=== PATIENT | female | born 1990 | race Caucasian/White ===

== ENCOUNTER → 2019-12-10 14:43 | Outpatient (BNVA) | payer MEDICAID, SELFPAY | PROVIDERS: Family Provider Nurse Practitioner Family; Visit Provider Obstetrics & Gynecology | DX: O26.893 Other specified pregnancy related conditions, third trimester; Z67.91 Unspecified blood type, Rh negative | CPT/HCPCS: 81003; 82950; 85027; 86850 ==

== ENCOUNTER 2019-12-15 17:58 | Observation (INO) | payer MEDICAID, SELFPAY ==
[2019-12-15] VITALS (7 sets, daily range): BP systolic 0–142; BP diastolic 0–79; PULSE 97–100; RESP 16–20; TEMP 36.6–36.8; BMI 33.6
[2019-12-15] MEDS: acetaminophen 325 mg Tablet 650 MG PO (15:12)
[2019-12-15 15:24] LABS: Bilirubin Urine Neg (NEGATIVE); Blood Urine 3+ (Negative); Glucose Urine UA Norm (Normal); Ketones Urine Negative (Negative); Leukocyte Esterase Urine Negative (Negative); Nitrate Urine Negative (Negative); Protein Urine Trace (Negative); Specific Gravity, Urine 1.025 (1.005-1.030); Urine Appearance Cloudy (CLEAR); Urine Color Yellow (Yellow); Urobilinogen Urine Norm (Negative); pH Urine 6 (5-7)
[2019-12-15 15:26] LABS: Bacteria Urine 2+; Mucus Urine 1+; RBC Urine TOO NUMEROUS TO CNT /hpf (0-2); Squamous Epithelial Cell Urine 0-4 (0-5); WBC Urine 0-4 /hpf (0-5)
[2019-12-15 15:27] LABS: Add Urine Culture? Yes
[2019-12-15 15:32] LABS: Alanine Aminotransferase 9 U/L (0-33); Albumin Level 3.6 g/dL (3.5-5.2); Alkaline Phosphatase 98 IU/L (35-105); Anion Gap 16.8 (5-19); Aspartate Amino Transferase 15 U/L (0-32); Blood Urea Nitrogen 5 mg/dL (6-20); Calcium 9.5 mg/Dl (8.6-10.0); Carbon Dioxide 22 mmol/L (22-29); Chloride 99 mmol/L (98-107); Globulin 3.6 g/dL (1.3-4.6); Glomerular Filtration Rate 143.9 mL/min (90-130); Glucose 97 mg/dL (74-109); Potassium 3.8 mmol/L (3.5-5.1); Sodium 134 mmol/L (136-145); Total Bilirubin 0.4 mg/dL (0.15-1.2); Total Protein 7.2 g/dL (6.6-8.7)
[2019-12-15] MEDS: sodium chloride 0.9% 1,000 ML 999 ML IV (15:43)
[2019-12-15] MEDS: metoclopramide 5 mg/mL SDV 2 mL 10 MG IVP (15:43)
--- NOTE | 2019-12-15 15:52 | PC.NURSE ---
pt writhing in bed, unable to position to comfort or to keep EFM tracing. pt crying and asking for pain medication. call to dr marcano for further orders. message left with ANABEL Harrell RN at bedside adjusting monitors, but pt unable to sit still and still sitting up to vomit intermittently
[2019-12-15] MEDS: ampicillin 2,000 MG in sodium chloride 0.9% (plus) 50 ML 100 MG IV (16:38)
[2019-12-15] MEDS: sodium chloride 0.9% 1,000 ML 125 ML IV (16:46)
--- NOTE | 2019-12-15 17:03 | PC.NURSE ---
pt refusing monitors at this time, refusing to wear belly band. states after pain is decreased she will agree to monitors
[2019-12-15] MEDS: lactated ringers 1,000 ML 250 ML IV (22:00)
--- NOTE | 2019-12-15 22:08 | PC.NURSE ---
initiation of LR due to verbal direction from Dr. Gold to start LR after infusion of current fluid.
[2019-12-15] MEDS: HYDROcodone-acetaminophen 5-325 mg Tablet PO (23:43)
[2019-12-16] MEDS: lactated ringers 1,000 ML 250 ML IV ×2 (02:07→06:13)
[2019-12-16 04:53] VITALS: BP 123/72; PULSE 86
[2019-12-16] MEDS: HYDROcodone-acetaminophen 5-325 mg Tablet PO (06:16)
[2019-12-16] MEDS: ondansetron 2 mg/ML SDV 2 mL 4 MG IVP (08:51)
--- NOTE | 2019-12-16 09:04 | US_ITS ---
WS: [id number] RENAL ULTRASOUND HISTORY: KIDNEY STONES COMPARISON: None available. TECHNIQUE: 2-D and color Doppler imaging of the kidney submitted. Right kidney: 11.9 cm x 5.6 cm x 4.5 cm. Normal size kidney normal echogenicity. Very mild dilatation of the RIGHT renal pelvis. No calyceal d ilatation. Left kidney: 11.9 cm x 4.9 cm x 5.3 cm. Normal size kidney and normal echogenicity. There is mild dilatation of the LEFT renal pelvis. Aorta: Normal. Urinary Bladder: Minimally distended. US/US renal BI* [id number] IMPRESSION: Very mild dilatation of the renal pelves, LEFT greater than RIGHT.
--- NOTE | 2019-12-16 09:12 | P.HP_ITS ---
Providers/Chief Complaint Admitting Physician: Shayne Pineda MD Primary Care Provider: DOCTOR NOT ON FILE Chief Complaint: OPOB History of Present Illness Patient is a 29-year-old white female 1, para 0 with an LMP of 05/2019 and an EDC of 03/02/2020 based on a 10-week ultrasound, which placed her at 29-0/7 weeks gestation today. She presented to labor and delivery yesterday afternoon with in her back and side. She reported having had a prior history of kidney stones and the pain reminded her of that. She stated that she had had nausea associated with it. She stated she had been unable to keep pain medications down due to the nausea. She stated that heat helped with the pain, but did not completely relieve it. She denied seeing any blood in the urine. She denied vaginal bleeding, leaking of fluid, or contractions. She reported the baby was moving well. This morning, she states that her pain has improved. She states that it will almost go away but then comes back in waves periodically with nausea associated with it. She reports that she did pass a stone this morning. She denies vaginal bleeding or leaking of fluid. She denies contractions. She reports the baby has been moving well. CARE care has been mainly provided by Dr. Cornelius Gold at [facility]. Her care had been uncomplicated. labs 08/18/2019 Blood type: A NEGATIVE Antibody screen : Negative Intake CBC: 8.6<13.2/37.5> 284 Cystic fibrosis: Declined Rubella : Immune Hepatitis B surface antigen: Nonreactive Hepatitis C antibody: Nonreactive RPR: Nonreactive HIV: Nonreactive Drug screen: Negative Urine culture: < 5000 contaminants, no GBS Early GCT: 114-normal TSH: 1.92-normal NIPT: declined Gonorrhea: Negative Chlamydia: Negative Pap smear: Negative for intraepithelial lesion or malignancy, high-risk HPV negative 09/18/2019 Quad screen: Declined. 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 Visualized anatomy appears normal and complete except for nonvisualization of the profile secondary to position. Recommend repeat evaluation at 27 weeks to reassess profile and growth. Review of Systems Const: Denies: fever or chills Eyes: Denies: change in vision ENMT: Denies: throat pain or nasal congestion Card: Denies: chest pain, palpitations or lightheadedness Resp: Denies: shortness of breath, productive cough, non-productive cough or wheezing GI: Reports: abdominal pain, nausea and vomiting : Denies: difficulty urinating, painful urination, urinary frequency, urinary urgency, blood in urine, genital itching, vaginal bleeding or vaginal discharge Musc: Reports: back pain Neuro: Denies: headache Psych: Denies: anxiety or depression Temo/Lymph: Denies: easy bruising or easy bleeding Medications/Allergies Home Medications Medication Instructions Recorded Confirmed Last Taken Type PNV cmb#95-ferrous fumarate-FA 1 tab PO DAILY 12/15/19 12/15/19 12/15/19 08:00 History [] Allergies Allergy/AdvReac Type Severity Reaction Status Date / Time codeine Allergy Mild vomiting Verified 12/15/19 14:47 [From [employer] with Codeine] PFSH Acute PFSH: Statuses (acute, chronic, etc) shown below reflect problem list status as previously entered and may not be historically accurate Medical History Rh negative status during (Acute) Blood type: A Negative Surgical History S/P cholecystectomy (Acute ~05/2013) Laparoscopic. S/P tonsillectomy (Acute ~1998) Family History Family/Other Diabetes Paternal uncle, Father's brothers and sisters (multiple ones have it) Grandmother Hyperlipidemia Maternal Grandfather Prostate cancer Paternal Social History (Updated 12/16/19 @ 09:35 by Cornelius Gold MD) Smoking and tobacco status: never smoked Alcohol intake: never Substance/Drug Use: never Female Reporductive History: : 1 Para: 0 Vitals/I&O/Wt Last Vital Signs Temp 97.9 F 12/15/19 22:05 Pulse 86 12/16/19 04:53 Resp 16 12/15/19 22:05 BP 123/72 12/16/19 04:53 12/15/19 12/16/19 12/16/19 22:59 06:59 14:59 Intake Total 2150.000 / 2150.000 2000 / 4150.000 Output Total 600 / 600 1450 / 2050 Balance 1550.000 / 1550.000 550 / 2100.000 Weight last 48 hrs Weight 184 lb Physical Exam Const: COMMON NORMALS: no apparent distress, average body habitus, alert and well nourished GENERAL APPEARANCE: well developed ORIENTATION/CONSCIOUSNESS: Yes oriented to person, Yes oriented to place and Yes oriented to time Neck/C-Spine: COMMON NORMALS: thyroid normal GENERAL: Yes trachea midline THYROID: thyroid normal Resp: COMMON NORMALS: normal respiratory effort and clear to auscultation bilaterally AUSCULTATION: clear to auscultation bilaterally Cardio: COMMON NORMALS: regular rate, regular rhythm, no gallops and no rub RATE: regular rate RHYTHM: regular rhythm PERIPHERAL PULSES: posterior tibial pulses present GI: COMMON NORMALS: soft to palpation, non-tender, no hepatosplenomegaly and no masses (Except for nontender gravid uterus) AUSCULTATION: Yes normoactive bowel sounds PALPATION: Yes soft, Yes no hepatosplenomegaly and No hernia Back/Pelvis: COMMON NORMALS: no CVA tenderness (Bilaterally) Neuro: SENSORIUM/ORIENTATION: Yes alert, Yes oriented to person, Yes oriented to place and Yes oriented to time Psych: COMMON NORMALS: affect normal MOOD & AFFECT: Yes euthymic mood Skin: COMMON NORMALS: no rashes or lesions noted GENERAL SKIN EXAM: no rashes or lesions noted Data : 12/15/19 15:08 Other Labs: Laboratory Tests 12/15/19 15:00 Ur Specific [place] 1.025 Urine Protein Trace Urine Glucose (UA) Norm Urine Ketones Negative Urine Occult Blood 3+ H Urine Nitrate Negative Ur Leukocyte Esterase Negative Urine RBC Too numerous to cnt H Urine WBC 0-4 H Ur Squamous Epith Cells 0-4 H Other data: monitoring: Baseline heart rate 140s with moderate variability. No accelerations noted. No decelerations noted. Gestational age appropriate tracing. No contractions noted. A&P Assessment and plan (1) Ureterolithiasis during in third trimester: Patient reports a past history of kidney stones. On admission, she had all the symptoms consistent with left-sided ureteral stone. She was initially treated with fluid bolus and then increased fluid IV fluid rate through the night to promote hydration in an attempt to help pass the stone. She also required anti-emetics on admission and then also this morning. She was initially treated with IV Tylenol and then has taken [place] twice during the night for the pain. She states that the pain is better this morning after having passed a stone this morning. However, she states she still has some pain. I discussed with her that ureteral irritation may still last for several days even though the stone has passed. I am recommending a renal ultrasound this morning to evaluate for significant hydronephrosis of the left kidney, which was the side that the pain was located on before. If she does not have significant hydronephrosis, she most likely has passed the stone and no further acute treatment will be needed at this time. However, follow-up afterwards with urology would be recommended, but would typically wait until after delivery if possible. Questions were answered. Patient is in agreement with the plan of care at this time. This will be sent for stone analysis, since she states she has had no prior stones evaluated. Status: Acute Code(s): O99.89 - Other specified diseases and conditions complicating , childbirth and the puerperium; N20.1 - Calculus of ureter Attestations Medical Necessity Statement*: Patient was having significant pain thought to be related to a kidney stone. She was unable to take oral medications initially due to vomiting associated with the pain requiring parental antiemetics and pain medications. 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
--- NOTE | 2019-12-16 10:23 | PM.DCS ---
Discharge Providers Date of Admission: 12/15/19 17:58 Date of Discharge: 12/16/19 Attending Provider at Admission: Shayne Pineda MD Attending Provider at Discharge: Cornelius Gold MD Primary Care Provider: DOCTOR NOT ON FILE Diagnoses at Discharge Discharge Diagnosis (1) Ureterolithiasis during in third trimester: Status: Acute Reason for Visit Reason for Visit: Reason For Visit: OPOB Hospital Course Hospital Course: Patient is a 29-year-old white female 1, para 0 with an LMP of 05/2019 and an EDC of 03/02/2020 based on the 10-week ultrasound, which placed her at 29-0/7 weeks gestation today. She had presented to the hospital with left-sided back pain and side pain which reminded her of when she had had a kidney stone in the past. She had associated nausea with the pain. Urine dip in L&D showed large amounts of blood with exam consistent with stone at the time. evaluation revealed appropriate heart rate with no contractions noted. Patient was admitted as an observation and IV hydrated. She also received IV antiemetics and IV pain medications initially before being switched over to oral pain medications during the night. This morning, she reports that her pain has improved but is not completely gone. She reported passing a small stone this morning which was saved and has been sent off for analysis. Ultrasound performed this morning showed mild dilation of the left kidney, more than the right. This is not unexpected with no signs of significant dilation of the kidney. As a result, it is felt that she should be able to be discharged to home and to keep follow-up appointments in the office. She will need further evaluation after the is over with to see if additional stones are present. Discharge Data Data Completed and Pending: Completed Studies During Hospitalization Category Date Time Status US renal BI* [id number] Routine Ultrasound 12/16/19 09:04 Completed Pending at discharge Category Date Time Status Urine Culture Sta t Lab 12/15/19 15:00 Received Urine Stone Kaycee sis Routine Lab 12/16/19 09:07 Uncollected Labs from last 24 hours 12/15/19 12/15/19 15:08 15:00 Sodium 134 L Potassium 3.8 Chloride 99 Carbon Dioxide 22 Anion Gap 16.8 BUN 5 L Creatinine 0.5 GFR Calculation 143.9 H Glucose 97 Calcium 9.5 Total Bilirubin 0.4 AST 15 ALT 9 Alkaline Phosphata se 98 Total Protein 7.2 Albumin 3.6 Globulin 3.6 Urine Color Yellow Urine Appearance Cloudy Urine pH 6 Ur Specific Gravit y 1.025 Urine Protein Trace Urine Glucose (UA) Norm Urine Ketones Negative Urine Occult Blood 3+ H Urine Nitrate Negative Urine Bilirubin Neg Urine Urobilinogen Norm Ur Leukocyte Azul ase Negative Urine RBC Too numerous to c nt H Urine WBC 0-4 H Ur Squamous Epith Cells 0-4 H Urine Bacteria 2+ H Urine Mucus 1+ Vitals: Last Vital Signs Temp 97.9 F 12/15/19 22:05 Pulse 86 12/16/19 04:53 Resp 16 12/15/19 22:05 BP 123/72 12/16/19 04:53 Discharge Plan Discharge Patient Disposition: Home, Self-Care Condition: Stable Prescriptions: New hydrocodone-acetaminophen 5-325 mg Tablet 1 - 2 tab PO Q6H PRN (Reason: Moderate Pain) Qty: 30 RF: 0 promethazine 25 mg tablet 25 mg PO Q6H PRN (Reason: nausea and vomiting) Qty: 20 RF: 0 Continued 28 mg iron- 800 mcg Tablet 1 tab PO DAILY RF: 0 Discharge Orders: Discharge Order (Routine); Ordered 12/16/19 Ordered By: Cornelius Gold Referrals: Cornelius Gold MD [Physician] - (Keep next scheduled appointment in the office) Discharge Diet: Regular Discharge Activity: Resume usual activity Discharge Attestations Time Spent in Discharge Care*: less than 30 min Quality Metrics Clinical Quality Measures During this hospital stay, did patient experience: None Coding Level of Care 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
[2019-12-16 11:10] VITALS: BP 109/63; PULSE 92; RESP 18; TEMP 36.8
[2019-12-16 11:13] VITALS: BP 109/63; PULSE 92
[2019-12-16 11:18] VITALS: BP 109/63; PULSE 92; RESP 18; TEMP 36.8
[2019-12-20 16:57] LABS: Stone Source STONE
== END 2019-12-16 11:25 | disposition home or self-care (01) ==
LOC: OBGYN 12-16 08:37 → OPOB 12-16 08:37
PROVIDERS: Obstetrics & Gynecology; Admitting Provider Obstetrics & Gynecology; Family Provider Nurse Practitioner Family; Visit Provider Obstetrics & Gynecology
DX: O99.89 Other specified diseases and conditions complicating pregnancy, childbirth and the puerperium (principal); Z3A.29 29 weeks gestation of pregnancy; N20.1 Calculus of ureter
CPT/HCPCS: 12345; 36415; 59025; 76770; 80053; 81001; 82365; 87086; 96361; 96365; 96375; 99211; A9270; G0378; J0131; J0290; J2405; J2765; J7030

== ENCOUNTER → 2019-12-25 10:32 | Outpatient (BNVA) | payer MEDICAID, SELFPAY | PROVIDERS: Family Provider Nurse Practitioner Family; Visit Provider Obstetrics & Gynecology | DX: Z01.89 Encounter for other specified special examinations (principal) | CPT/HCPCS: 84315 ==

== ENCOUNTER → 2020-01-01 11:21 | Outpatient (BNVA) | payer MEDICAID, SELFPAY | PROVIDERS: Family Provider Nurse Practitioner Family; Referring Provider Obstetrics & Gynecology; Visit Provider Obstetrics & Gynecology | DX: R10.9 Unspecified abdominal pain (principal); R73.09 Other abnormal glucose; Z34.90 Encounter for supervision of normal pregnancy, unspecified, unspecified trimester | CPT/HCPCS: 81003; 82951; 82952; 87086 ==

== ENCOUNTER → 2020-01-07 14:01 | Outpatient (BNVA) | payer MEDICAID, SELFPAY | PROVIDERS: Family Provider Nurse Practitioner Family; Visit Provider Obstetrics & Gynecology | DX: O99.89 Other specified diseases and conditions complicating pregnancy, childbirth and the puerperium (principal); Z3A.35 35 weeks gestation of pregnancy; O24.419 Gestational diabetes mellitus in pregnancy, unspecified control; O36.63X0 Maternal care for excessive fetal growth, third trimester, not applicable or unspecified | CPT/HCPCS: 76816; 84315 ==

== ENCOUNTER → 2020-01-14 13:48 | Outpatient (BNVA) | payer MEDICAID, SELFPAY | PROVIDERS: Family Provider Nurse Practitioner Family; Visit Provider Obstetrics & Gynecology | DX: Z34.90 Encounter for supervision of normal pregnancy, unspecified, unspecified trimester (principal) | CPT/HCPCS: 76816; 76819; 81003 ==

== ENCOUNTER → 2020-01-21 10:49 | Outpatient (BNVA) | payer MEDICAID, SELFPAY | PROVIDERS: Family Provider Nurse Practitioner Family; Visit Provider Obstetrics & Gynecology | DX: O24.419 Gestational diabetes mellitus in pregnancy, unspecified control (principal) | CPT/HCPCS: 76816; 76819; 81003 ==

== ENCOUNTER → 2020-01-28 10:52 | Outpatient (BNVA) | payer MEDICAID, SELFPAY | PROVIDERS: Family Provider Nurse Practitioner Family; Visit Provider Obstetrics & Gynecology | DX: O09.893 Supervision of other high risk pregnancies, third trimester (principal); O24.410 Gestational diabetes mellitus in pregnancy, diet controlled | CPT/HCPCS: 76816; 76819; 84315 ==

== ENCOUNTER → 2020-02-01 08:08 | Outpatient (BNVA) | payer MEDICAID, SELFPAY | PROVIDERS: Family Provider Nurse Practitioner Family; Visit Provider Obstetrics & Gynecology | DX: O24.419 Gestational diabetes mellitus in pregnancy, unspecified control (principal) | CPT/HCPCS: 76816; 76819 ==

== ENCOUNTER → 2020-02-04 11:04 | Outpatient (BNVA) | payer MEDICAID, SELFPAY | PROVIDERS: Family Provider Nurse Practitioner Family; Visit Provider Obstetrics & Gynecology | DX: O24.410 Gestational diabetes mellitus in pregnancy, diet controlled (principal); Z36.89 Encounter for other specified antenatal screening; Z3A.28 28 weeks gestation of pregnancy | CPT/HCPCS: 76816; 76819; 84315; 87081 ==

== ENCOUNTER → 2020-02-11 11:08 | Outpatient (BNVA) | payer MEDICAID, SELFPAY | PROVIDERS: Family Provider Nurse Practitioner Family; Visit Provider Obstetrics & Gynecology | DX: O09.893 Supervision of other high risk pregnancies, third trimester (principal); O24.410 Gestational diabetes mellitus in pregnancy, diet controlled | CPT/HCPCS: 76816; 76819; 84315 ==

== ENCOUNTER → 2020-02-15 08:42 | Outpatient (BNVA) | payer MEDICAID, SELFPAY | PROVIDERS: Family Provider Nurse Practitioner Family; Visit Provider Obstetrics & Gynecology | DX: O09.893 Supervision of other high risk pregnancies, third trimester (principal); O24.419 Gestational diabetes mellitus in pregnancy, unspecified control | CPT/HCPCS: 76816; 76819 ==

== ENCOUNTER 2020-02-17 14:39 | Outpatient (CLI) | payer MEDICAID, SELFPAY ==
[2020-02-17 15:08] VITALS: BP 146/90; PULSE 76
[2020-02-17 15:23] VITALS: BP 125/82; PULSE 83
[2020-02-17 15:26] VITALS: BMI 35.1
[2020-02-17 15:28] VITALS: BP 125/75; PULSE 79; RESP 18; TEMP 36.9
[2020-02-17 15:37] VITALS: BP 0/0
[2020-02-17 15:39] VITALS: BP 125/75; PULSE 79
[2020-02-17 15:40] VITALS: BP 125/75; PULSE 79; RESP 18; TEMP 36.9
== END 2020-02-17 15:45 | disposition home or self-care (01) ==
LOC: OPOB 14:41 → OBGYN 15:39 → OPOB 02-18 07:48
PROVIDERS: Family Provider Nurse Practitioner Family; Visit Provider Obstetrics & Gynecology
DX: O26.899 Other specified pregnancy related conditions, unspecified trimester (principal); Z3A.00 Weeks of gestation of pregnancy not specified; R10.9 Unspecified abdominal pain
CPT/HCPCS: 59025; 99211

== ENCOUNTER → 2020-02-18 08:16 | Outpatient (BNVA) | payer MEDICAID, SELFPAY | PROVIDERS: Family Provider Nurse Practitioner Family; Visit Provider Obstetrics & Gynecology | DX: O09.893 Supervision of other high risk pregnancies, third trimester (principal); O24.410 Gestational diabetes mellitus in pregnancy, diet controlled | CPT/HCPCS: 76816; 76819; 84315 ==

== ENCOUNTER → 2020-02-22 08:12 | Outpatient (BNVA) | payer MEDICAID, SELFPAY | PROVIDERS: Family Provider Nurse Practitioner Family; Visit Provider Obstetrics & Gynecology | DX: O24.410 Gestational diabetes mellitus in pregnancy, diet controlled (principal); O99.213 Obesity complicating pregnancy, third trimester; O36.63X0 Maternal care for excessive fetal growth, third trimester, not applicable or unspecified | CPT/HCPCS: 76816; 76819 ==

== ENCOUNTER → 2020-02-25 10:28 | Outpatient (BNVA) | payer MEDICAID, SELFPAY | PROVIDERS: Family Provider Nurse Practitioner Family; Visit Provider Obstetrics & Gynecology | DX: Z34.90 Encounter for supervision of normal pregnancy, unspecified, unspecified trimester (principal) | CPT/HCPCS: 76816; 76819; 84315 ==

== ENCOUNTER 2020-02-29 07:20 | Inpatient (IN) | payer MEDICAID, SELFPAY ==
[2020-02-29] VITALS (141 sets, daily range): BP systolic 0–170; BP diastolic 0–109; PULSE 73–107; RESP 16–20; TEMP 36.7–37.6; O2SAT 94–100; BMI 37.5
--- NOTE | 2020-02-29 07:45 | PC.NURSE ---
Call to Dr. Roberts at this time to report pt is , 39 5/7, GDM, GBS negative. Pt SVE is 5cm, 50%, -1 station, No contractions, FHT 135 baseline, audible arrhythmia noted; moderate variability, 15x15 accelerations, no decelerations. VS 142/95, 138/90, 139/80. Received orders to admit the pt, insert IV, draw CBC and type and screen, draw pre-eclamptic labs and hold, perform finger stick glucose, Cytotec 25 mcg X2 doses. Haylie Stone RN
[2020-02-29] MEDS: miSOPROStol 100 mcg tablet 25 MCG VAGINAL (08:30)
[2020-02-29 08:40] LABS: Glucose Point of Care 118 mg/dL (70-110)
[2020-02-29 09:25] LABS: Basophils % 0.4 %; Eosinophils # 0.1 10^3/uL (0.0-0.8); Eosinophils % 0.8 %; Hematocrit 35.3 % (37.0-47.0); Hemoglobin 11.5 g/dL (11.5-15.3); Lymphocytes # 2.1 10^3/uL (0.8-4.8); Lymphocytes % 25.6 %; Mean Corpuscular HGB Conc 32.6 g/dL (30.0-36.0); Mean Corpuscular Hemoglobin 27.5 pg (28.0-34.0); Mean Corpuscular Volume 84.4 fL (81-99); Monocytes # 0.3 10^3/uL (0.2-0.9); Neutrophils # 5.7 10^3/uL (1.8-7.7); Neutrophils % 68.8 %; Nucleated Red Blood Cells % 0 %; Platelet Count 246 10^3/cmm (130-400); Red Blood Count 4.18 10^6/uL (4.1-5.3); Red Cell Distribution Width 15.2 % (12.1-15.1); White Blood Count 8.3 10^3/uL (4.0-10.0)
[2020-02-29] MEDS: dextrose 5%-lactated ringers 1,000 ML 999 ML IV (09:30)
[2020-02-29 09:46] LABS: Alanine Aminotransferase 10 U/L (0-33); Albumin Level 3.1 g/dL (3.5-5.2); Alkaline Phosphatase 204 IU/L (35-105); Anion Gap 18.8 (5-19); Aspartate Amino Transferase 18 U/L (0-32); Blood Urea Nitrogen 6 mg/dL (6-20); Calcium 9.1 mg/dL (8.5-10.5); Carbon Dioxide 20 mmol/L (22-29); Chloride 102 mmol/L (98-107); Globulin 3.5 g/dL (1.3-4.6); Glomerular Filtration Rate 186.2 mL/min (90-130); Glucose 127 mg/dL (65-115); Osmolality Calculated 281 mOsm/kg (285-295); Potassium 3.8 mmol/L (3.5-5.1); Sodium 137 mmol/L (136-145); Total Bilirubin 0.4 mg/dL (0.15-1.2); Total Protein 6.6 g/dL (6.6-8.7); Uric Acid 4.5 mg/dL (2.4-5.7)
[2020-02-29 09:51] LABS: Add Urine Microscopic? YES; Bilirubin Urine Neg (NEGATIVE); Blood Urine 2+ (Negative); Glucose Urine UA Norm (Normal); Ketones Urine Negative (Negative); Leukocyte Esterase Urine Negative (Negative); Nitrate Urine Negative (Negative); Protein Urine Neg (Negative); Urine Appearance SL Hazy (CLEAR); Urine Color Yellow (Yellow); Urobilinogen Urine 1 mg/dL (Negative); pH Urine 6.5 (5-7)
[2020-02-29 09:53] LABS: Add Urine Culture? Yes; Bacteria Urine 1+; Mucus Urine 3+; RBC Urine 15-25 /hpf (0-2); WBC Urine 0-4 /hpf (0-5)
[2020-02-29 09:57] LABS: Urine Creatinine 108 mg/dL (28-217); Urine Protein Random 17 mg/dL
[2020-02-29 09:58] LABS: UPRO/UCREAT Ratio 0.16 mg/mg CR
--- NOTE | 2020-02-29 11:09 | PC.NURSE ---
Call to Dr. Roberts to report BP 165/107 and repeat of 165/98. Pt pain is 9. Received orders for 25 mcg Fentanyl IV push once. Reasses BP in 20 minutes and call; pt may have an epidural when desired. Haylie Stone RN
[2020-02-29] MEDS: fentaNYL 50 mcg/mL INJ 2mL 25 MCG IVP (11:22)
[2020-02-29] MEDS: lactated ringers 1,000 ML 999 ML IV (12:11)
[2020-02-29] MEDS: labetalol 5 mg/mL SDV 20mL IVP (12:11)
[2020-02-29 12:26] LABS: Glucose Point of Care 97 mg/dL (70-110)
--- NOTE | 2020-02-29 13:00 | PC.NURSE ---
Call to Dr. Frias to report pt requesting an epidural. He reported, Wasn't Will just up there? This nurse replied, Yes, but that was for another patient, this patient did not request an epidural at that time. Dr. Frias replied, Well we are busy and have stuff going on right now, we'll get someone up there when we can.
--- NOTE | 2020-02-29 13:54 | ANES.PROC ---
Anesthesia Procedures Procedure/Date: 02/29/20 Epidural: Time Out Performed: Yes Consents Signed: Procedure Consent (To room: 1323 ) and NPO Consent Consent: requested by attending/covering physician and from patient Lumbar Level: L3-L4 Epidural position: sitting Epidural procedure: sterile prep of area, 1% lidocaine to numb the area (3 cc skin wheel), 18 g needle (L3-L4 interspace), negative for paresthesia passed, test dose given (13:35), 1.5% xylocaine 1:200k epi, 0.2% Ropivacaine bolus ml (8 cc), placed PCEA, no systemic response, sterile dressing applied and 0.2% Ropiavacaine @ mls/hr (12 mls/hr % cc Q 10 min x 3 ) Additional Comments: LEVY @ 8 cm, catherter threaded to 14 cm at skin. VSS patient states she is much more comfortable with contractions. See OBYX system for vitals.
[2020-02-29 14:29] LABS: Glucose Point of Care 131 mg/dL (70-110)
[2020-02-29] MEDS: lactated ringers 1,000 ML 125 ML IV (14:55)
[2020-02-29 16:42] LABS: Glucose Point of Care 80 mg/dL (70-110)
[2020-02-29] MEDS: dextrose 5%-lactated ringers 1,000 ML 125 ML IV (16:52)
[2020-02-29] MEDS: oxytocin 30 UNIT/500 ML BAG IV (17:54)
[2020-02-29 18:39] LABS: Glucose Point of Care 84 mg/dL (70-110)
[2020-02-29 20:38] LABS: Glucose Point of Care 86 mg/dL (70-110)
--- NOTE | 2020-02-29 22:41 | P.PN_ITS ---
Subjective Subjective: Interval history: Ms. Donovan is a 29-year-old 1 para 0 at 39 weeks and 5 days gestation who was admitted to labor and delivery on 03/03/2020 for scheduled induction of labor for gestational [id number] at term. GBS is negative. Upon admission on 02/29/2020 at 7:30 AM she was noted to be 4 to 5 cm, 50% and -2 station. tracing was category 1 with no contractions. She did have a few elevated blood pressures and labs done to rule out preeclampsia were negative and showed a protein creatinine ratio of 0.1. While she was in pain with the contraction she did have a few severe elevations that required a single dose of 20 mg of IV labetalol. Induction was started at 8:30 AM with Cytotec vaginally. With this she started to have regular contractions every 2 to 3 minutes and grew uncomfortable and made cervical change to 5 to 6 cm, 60% and -1 station at which time an epidural was placed. After that she was more comfortable. She had artificial rupture of membranes performed at 2:45 PM with clear fluid at which time she was 5-6, 60% and -2 station. She made slow progress and at 6 PM was 6 to 7 cm. She was started on Pitocin titrated to a maximum of 8 mIU and as her contractions had spaced out for augmentation. She was 8 cm at 7 PM however made no further cervical change and at 1030 continue to be 8 cm, 90% and 0 station. There was no further descent of the head despite adequate contractions. Decision was made to proceed with delivery for arrest of dilation. Vitals/I&O/Wt Last Vital Signs Temp 98.4 F 02/29/20 22:06 Pulse 96 02/29/20 22:27 Resp 18 02/29/20 22:06 BP 149/105 02/29/20 22:27 Pulse Ox 95 02/29/20 15:32 02/29/20 02/29/20 02/29/20 06:59 14:59 22:59 Intake Total 772.417 / 772.417 708.000 / 1480.417 Output Total 100 / 100 Balance 772.417 / 772.417 608.000 / 1380.417 Weight last 48 hrs Weight 205 lb Physical Exam Urinary Catheter Management^: [place]: Cath Placed During This Visit: yes Reason for Continuing Indwelling Catheter: Other Urinary Catheter Date of Insertion: 02/29/20 Urinary Catheter Time of Insertion: 14:00 Data : 02/29/20 08:15 02/29/20 08:15 A&P Assessment and plan (1) Rh negative status during : Status: Acute Qualifiers: Trimester: third trimester Qualified Code(s): O26.893 - Other specified related conditions, third trimester; Z67.91 - Unspecified blood type, Rh negative (2) Excessive growth affecting management of mother in third trimester, antepartum: Status: Acute Qualifiers: Fetus number: single or unspecified fetus Qualified Code(s): O36.63X0 - Maternal care for excessive growth, third trimester, not applicable or unspecified (3) Diet controlled gestational diabetes mellitus (GDM) in third trimester: Status: Acute (4) Arrested active phase of labor: Status: Acute Additional A&P Information -Discussed with Ms. Donovan that there is been no further cervical dilation. Discussed possible etiologies. At this time she would like to proceed with a delivery as she is uncomfortable. She does not want to wait any further. Patient was counseled about risks of . All her questions were answered. 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
[2020-02-29] MEDS: citric acid-sodium citrate 30 mL UDC PO (23:01)
[2020-02-29] MEDS: famotidine 20 mg/2 mL INJ IVP (23:01)
[2020-02-29] MEDS: metoclopramide 5 mg/mL SDV 2 mL 10 MG IVP (23:01)
[2020-02-29] MEDS: azithromycin 500 MG in sodium chloride 0.9% 250 ML 250 MG IV (23:45)
[2020-03-01] VITALS (20 sets, daily range): BP systolic 118–158; BP diastolic 72–102; PULSE 79–105; RESP 18–20; TEMP 36.5–37.1; O2SAT 94–98
--- NOTE | 2020-03-01 00:17 | PM.DELIVERY ---
 Delivery Note: Date of delivery: March 01, 2020 A&P Assessment and plan (1) Rh negative status during : Status: Acute Qualifiers: Trimester: third trimester Qualified Code(s): O26.893 - Other specified related conditions, third trimester; Z67.91 - Unspecified blood type, Rh negative (2) Excessive growth affecting management of mother in third trimester, antepartum: Status: Acute Qualifiers: Fetus number: single or unspecified fetus Qualified Code(s): O36.63X0 - Maternal care for excessive growth, third trimester, not applicable or unspecified (3) Diet controlled gestational diabetes mellitus (GDM) in third trimester: Status: Acute (4) Arrested active phase of labor: Status: Acute Coding Level of Care Code 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
--- NOTE | 2020-03-01 00:17 | PM.DELIVERY ---
 Delivery Note: Date of delivery: March 01, 2020 Pre-Delivery Course: arrest at 8 cm Delivery: see op note 10lb 6 oz female 8/9 at 2333 h Post-Delivery Status: stable to floor A&P Assessment and plan (1) Rh negative status during : Status: Acute Qualifiers: Trimester: third trimester Qualified Code(s): O26.893 - Other specified related conditions, third trimester; Z67.91 - Unspecified blood type, Rh negative (2) Excessive growth affecting management of mother in third trimester, antepartum: Status: Acute Qualifiers: Fetus number: single or unspecified fetus Qualified Code(s): O36.63X0 - Maternal care for excessive growth, third trimester, not applicable or unspecified (3) Diet controlled gestational diabetes mellitus (GDM) in third trimester: Status: Acute (4) Arrested active phase of labor: Status: Acute Coding Level of Care Code 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
--- NOTE | 2020-03-01 00:18 | PM.OP ---
Operative Report Date of procedure: February 29, 2020 Pre-op Diagnosis: term EDC 03/02/20 Pre-op Diagnosis: Gestational diabetes Maternal obesity Rh- mother Post-op diagnosis: same Post-op Diagnosis: Arrest of dilation Post-op Findings: Normal-looking uterus tubes and ovaries there was partial thickness extension of laceration down the left lateral side approximately 4 cm. 10 pounds 6 ounces female Apgars 8 9 born at 2333 hrs. 29 February 2020 Procedure Done: Primary low transverse Pathology: none sent Surgeon: Humphrey De Jesus Account Executive [employer]: Dr. Roberts Estimated blood loss (mL): 600 IV fluids (mL): 1,800 Urine output (mL): 100 Complications: None Findings: Procedure note: Note Dr. Roberts was present at bedside and assisted throughout the entire case. Ms. Donovan is a 29-year-old P1 lady admitted at 39 weeks for induction of labor. Cervix was 5 cm dilated time of admission. Had category 1 tracing she proceeded to 8 cm however did not dilate past 8 cm and approximately 0 station despite adequate labor. Decision was made to proceed with for arrest. She did receive prophylactic antibiotics consisting of Ancef and Zithromax Patient was taken to the operating room in labor delivery at [facility] had indwelling Mojica catheter sequentials were on. She was underwent subarachnoid block placed in the left lateral tilt position. Abdomen was prepped and draped timeout was performed after appropriate level of anesthesia was achieved a transverse incision was made in the lower abdomen carried down through the subcutaneous tissue fascia was nicked on either side the midline extended bluntly rectus muscles and peritoneum were split in the midline. The bladder flap was developed and the bladder taken down nicely. The lower uterine segment was quite thin a incision was scored transversely and the lower uterine segment uterus was entered fluid is clear there is note that upon entering the uterus shoulder was present. The incision was extended bluntly. The production drilling machine operator's hand was placed down into the lower uterine segment and vertex dislodged. The head was delivered with fundal pressure and then the shoulders were delivered without difficulty. Mom did receive IV Pitocin after the cord was clamped and cut there was good uterine contractility. Infant was handed off to attendant nursing staff in good condition Apgars 8 9. Placenta delivered spontaneously complete and three-vessel uterus was wiped clean of clot and debris. The lower uterine segment transverse incision was closed in 2 layers of 0 Vicryl with a running locking stitch and imbricating stitch. The closure was carried down over the left lateral inferior partial-thickness laceration. There was excellent closure of the lower uterine segment at the end of the repair. The pelvis was irrigated uterus was replaced pelvic gutters were irrigated incision was inspected was hemostatic. The peritoneum was closed with running 2-0 Vicryl. Fascia closed with 0 Vicryl in a running fashion. Subcutaneous tissue was irrigated and Rach's fascia closed with 2-0 Vicryl. Skin edges infiltrated with a mixture of 1% lidocaine 0.5% Marcaine skin was these the skin was closed with a subcuticular 4-0 nylon of suitably 4-0 Vicryl. The incision was then sealed with Dermabond and after dry a Telfa and ABD pad was placed over the incision. The vagina was expressed cleaned of clot and debris. Patient was then allowed to recover and taken to the floor in good condition. Baby to nursery and then to room with mother. There were no complications anticipate discharge home post operative day 2. Condition: stable Disposition: floor
[2020-03-01] MEDS: dextrose 5%-lactated ringers 1,000 ML 125 ML IV ×2 (02:03→09:07)
[2020-03-01] MEDS: ketorolac 30 mg/mL INJ IVP ×2 (02:03→09:06)
--- NOTE | 2020-03-01 02:35 | PC.NURSE ---
MOM MOVED UP FROM PACU TO PP ROOM 205-2 AT THIS TIME
[2020-03-01] MEDS: ondansetron 2 mg/ML SDV 2 mL 4 MG IVP ×2 (02:51→07:58)
--- NOTE | 2020-03-01 06:56 | ANE.PACU2 ---
 Inpatient post-anesthesia follow up: Airway intact: Yes Vital signs: Temperature 97.9 F Pulse Rate 89 Respiratory Rate 18 Blood Pressure 138/84 Pulse Oximetry 97 Oxygen Delivery Me thod Room Air Oxygen Flow Rate Fraction of Inspir ed Oxygen Hydration adequate: Yes Nausea and vomiting: Yes Pain level: 3 Mental status: Baseline Additional Comments: not up and walking yet, no headaches, no signs of infection at site
[2020-03-01] MEDS: docusate sodium 100 mg Capsule PO ×2 (09:07→18:09)
[2020-03-01] MEDS: prenatal vitamin Capsule 1 CAP PO (09:07)
[2020-03-01 13:15] LABS: Hematocrit 29.8 % (37.0-47.0); Hemoglobin 9.6 g/dL (11.5-15.3); Mean Corpuscular HGB Conc 32.2 g/dL (30.0-36.0); Mean Corpuscular Hemoglobin 27.4 pg (28.0-34.0); Mean Corpuscular Volume 85.1 fL (81-99); Mean Platelet Volume 9.4 fL (7.4-10.4); Platelet Count 215 10^3/cmm (130-400); Red Cell Distribution Width 15.6 % (12.1-15.1); White Blood Count 12.2 10^3/uL (4.0-10.0)
--- NOTE | 2020-03-01 15:21 | PM.PN ---
Subjective Subjective: Interval history: Postoperative day 1 Patient is status post primary low transverse performed late in the evening of 29 February 2020 for arrest of dilation. She is doing well has no complaints is up and about tolerating p.o. catheter has yet to be removed but she is passing gas. Is doing well Vitals/I&O/Wt Last Vital Signs Temp 97.7 F 03/01/20 09:15 Pulse 83 03/01/20 09:15 Resp 18 03/01/20 09:15 BP 136/87 03/01/20 09:15 Pulse Ox 97 03/01/20 09:15 03/01/20 03/01/20 03/01/20 06:59 14:59 22:59 Intake Total 1100 / 2622.850 883.333 / 883.333 Output Total 1350 / 1450 100 / 100 Balance -250 / 1172.850 783.333 / 783.333 Weight last 48 hrs Weight 92.986 kg Physical Exam Narrative: EXAM NARRATIVE: Alert and oriented no acute distress obese white female Skin is clear HEENT grossly normal Lungs clear to auscultation Heart regular sinus rhythm Abdomen obese soft nontender good bowel sounds uterus U- 2 firm nontender dressing is in place and dry. Extremities mild edema no calf tenderness Urinary Catheter Management^: Mojica: Cath Placed During This Visit: yes Reason for Continuing Indwelling Catheter: Perioperative Use in Selected Surgeries Urinary Catheter Date of Insertion: 02/29/20 Urinary Catheter Time of Insertion: 14:00 Data : 03/01/20 13:05 02/29/20 08:15 Micro: Microbiology 02/29/20 09:20 Urine Culture - Preliminary Urine,Clean Catch A&P Assessment and plan (1) Status post primary low transverse section: Patient is postoperative day 1 doing well will advance care probable discharge postoperative day 2 Status: Acute Attestations Medical Necessity Statement*: Postoperative care Time Spent in Patient Care: 16 - 35 minutes (>than 50% of time spent in counselling and/or direct pt care on unit). Greater than 50% of time spent with patient [id number] discussion of postoperative course expectations advancement of care Coding Level of Care Code Acute Professor Of Journalism for Chg Fwd History Expanded Problem Focused Exam Expanded Problem Focused Medical Decision Making Moderate Complexity Diagnoses Status post primary low transverse section Z98.891 Time Spent (min) 20 Comment Greater than 50% [id number] time spent in discussion of postoperative course and care
[2020-03-01] MEDS: oxyCODONE 5 mg IR Tab/Cap PO (18:09)
[2020-03-02 01:05] VITALS: RESP 18
[2020-03-02] MEDS: oxyCODONE 5 mg IR Tab/Cap PO (01:05)
[2020-03-02 04:35] VITALS: BP 129/80; PULSE 89; RESP 18; TEMP 36.8
[2020-03-02 08:10] VITALS: RESP 18
[2020-03-02] MEDS: prenatal vitamin Capsule 1 CAP PO (08:10)
[2020-03-02] MEDS: docusate sodium 100 mg Capsule PO (08:10)
[2020-03-02] MEDS: oxyCODONE 5 mg IR Tab/Cap 10 MG PO ×2 (08:10→16:29)
[2020-03-02 09:57] VITALS: BP 127/82; PULSE 113; RESP 18; TEMP 36.9
--- NOTE | 2020-03-02 14:47 | P.DS_ITS ---
Discharge Providers STAVE LOG RIPSAW OPERATOR Date of Admission: 02/29/20 07:20 Date of Discharge: 03/02/20 Attending Provider at Admission: Nelda Bloom MD Attending Provider at Discharge: humphrey De Jesus DO Primary STAVE LOG RIPSAW OPERATOR: Dr Roberts Diagnoses at Discharge Discharge Diagnosis (1) Status post primary low transverse section: Status: Acute (2) Arrested active phase of labor: Status: Acute (3) Rh negative status during : Status: Acute Problem details: Blood type: A Negative Qualifiers: Trimester: third trimester Qualified Code(s): O26.893 - Other specified related conditions, third trimester; Z67.91 - Unspecified blood type, Rh negative (4) Excessive growth affecting management of mother in third trimester, antepartum: Status: Acute Qualifiers: Fetus number: single or unspecified fetus Qualified Code(s): O36.63X0 - Maternal care for excessive growth, third trimester, not applicable or unspecified (5) Diet controlled gestational diabetes mellitus (GDM) in third trimester: Status: Acute Reason for Visit Reason for Visit: Reason For Visit: Induction Hospital Course Hospital Course: now at 39+ weeks gestation admitted for induction of labor. is complicated by gestational diabetes question LGA. Upon admission to labor delivery patient underwent cervical ripening followed by Pitocin induction/augmentation. Progressed to 8 cm dilated: Not progressed beyond 8 cm over 4+ hours of labor despite adequate uterine contractions and Pitocin augmentation. Was taken for primary for arrest of dilation surgery was productive with 10 pound 6 ounce female fetus Apgars 8 9. Postoperatively patient and baby did well mother was discharged home mid afternoon postoperative day 2 plan follow-up in 2 weeks. Discharge Summary: Above patient was doing well time of discharge she was tolerating p.o. ambulatory up and about voiding and passing gas. No fevers no chills good pain control. Patient was breast-feeding and discharged with plan follow-up in 2 weeks Information Peripartum Data: Delivery Method: Section Physical Exam Narrative: EXAM NARRATIVE: Alert and oriented no acute distress morbidly obese young lady. HEENT grossly normal Lungs clear to auscultation Heart regular sinus rhythm Abdomen is obese soft nontender incisions well approximated no erythema no d rainage uterus U- 1 firm Pelvic exam not performed Extremities grossly intact mild edema no calf tenderness Neurologic shows normal gait patella DTR 2/ Urinary Catheter Management^: Mojica: Cath Placed During This Visit: yes, but has since been removed by the nurse Reason for Continuing Indwelling Catheter: Perioperative Use in Selected Surgeries Urinary Catheter Date of Insertion: 02/29/20 Urinary Catheter Time of Insertion: 14:00 Date Urinary Catheter Removed: 03/01/20 Time Urinary Catheter Discontinued: 12:30 Discharge Data Procedures Performed: Very low transverse Vitals: Last Vital Signs Temp 98.4 F 03/02/20 09:57 Pulse 113 H 03/02/20 09:57 Resp 18 03/02/20 09:57 BP 127/82 03/02/20 09:57 Pulse Ox 97 03/01/20 20:30 Discharge Plan Discharge Patient Disposition: Home, Self-Care Condition: Stable Prescriptions: New acetaminophen 325 mg Tablet 650 mg PO Q6H PRN (Reason: Mild Pain or Temp >100.4) Qty: 90 RF: 2 ibuprofen 800 mg Tablet 800 mg PO TID Qty: 60 RF: 2 docusate sodium 100 mg Capsule 100 mg PO BID Qty: 60 RF: 2 ferrous sulfate 325 mg (65 mg iron) Tablet,Delayed Release (Dr/Ec) 325 mg PO BIDWM Qty: 60 RF: 2 oxycodone 5 mg Tablet 5 mg PO Q4H PRN (Reason: Moderate Pain) 30 Days Qty: 30 RF: 0 Continued PNV cmb#95-ferrous fumarate-FA [] 28 mg iron- 800 mcg Tablet 1 tab PO DAILY RF: 0 Discontinued (DME) blood-glucose meter [Blood Glucose Monitoring] Kit See Rx Instructions .ROUTE .MEDSUPPLY Qty: 1 RF: 0 polyethylene glycol 3350 [Miralax] 17 gram/dose powder 17 gm PO .PRN RF: 0 cephalexin 500 mg capsule 500 mg PO BID 10 Days Qty: 20 RF: 0 Discharge Orders: Discharge Order (Routine); Ordered 03/02/20 Ordered By: Humphrey De Jesus Referrals: Humphrey De Jesus DO [Physician] - (check incision, needs 2 h GTT in period) Discharge Diet: Regular Discharge Activity: Increase activity as tolerated Patient Instructions: Perineal Care (DC), Bottle Feeding Your Baby (GEN), Your Baby (GEN), and Your Diet (GEN), OB C- Section WHC, OB Discharge Report, OB Food/Drug Interaction Guide, OB Care at Home Discharge Attestations STAVE LOG RIPSAW OPERATOR Time Spent in Discharge Care*: greater than 30 min Specific Discharge Activities: Specific discharge activities: educating patient, documenting/other paperwork and evaluating patient/reviewing data Coding Level of Care Code Acute Track Watchman for Chg Fwd Medical Decision Making Moderate Complexity Diagnoses Status post primary low transverse section Z98.891 Arrested active phase of labor O62.1 Rh negative status during O26.893; Z67.91 Trimester: third trimester Excessive growth affecting management of mother in third trimester, antepartum O36.63X0 Fetus number: single or unspecified fetus Diet controlled gestational diabetes mellitus (GDM) in third trimester O24.410 Time Spent (min) 30 Comment Greater than 50% [id number] time spent in counseling postoperative course expectations and contraception
[2020-03-02 16:29] VITALS: RESP 18
[2020-03-02 17:27] VITALS: BP 132/89; PULSE 91; RESP 18; TEMP 36.8
== END 2020-03-02 18:12 | disposition home or self-care (01) | DRG 788 ==
LOC: OPOB 07:20 → OBGYN 15:00
PROVIDERS: Obstetrics & Gynecology Female Pelvic Medicine and Reconstructive Surgery; Admitting Provider Obstetrics & Gynecology; Family Provider Nurse Practitioner Family; Visit Provider Obstetrics & Gynecology
PROC: 10D00Z1 Extraction of Products of Conception, Low, Open Approach (ICD-10-PCS; CPT 59514; principal; 2020-02-29 23:00)
DX: O36.63X0 Maternal care for excessive fetal growth, third trimester, not applicable or unspecified (principal); O24.420 Gestational diabetes mellitus in childbirth, diet controlled; Z3A.39 39 weeks gestation of pregnancy; Z37.0 Single live birth; O62.1 Secondary uterine inertia
CPT/HCPCS: 12345; 36415; 36416; 51702; 59409; 80053; 81001; 82570; 82962; 84156; 84550; 85025; 85027; 87086; 96374; 96375; 98960; J0456; J0690; J1885; J2001; J2274; J2405; J2590; J2765; J2795; J3010; J3490; J7030; J7050

== ENCOUNTER → 2020-03-16 08:45 | Outpatient (BNVA) | payer MEDICAID, SELFPAY | PROVIDERS: Family Provider Nurse Practitioner Family; Visit Provider Obstetrics & Gynecology Female Pelvic Medicine and Reconstructive Surgery | DX: Z34.90 Encounter for supervision of normal pregnancy, unspecified, unspecified trimester (principal); D64.9 Anemia, unspecified; Z98.891 History of uterine scar from previous surgery | CPT/HCPCS: 81000; 85007; 85027 ==

== ENCOUNTER → 2020-04-14 08:40 | Outpatient (BNVA) | payer MEDICAID, SELFPAY | PROVIDERS: Family Provider Nurse Practitioner Family; Visit Provider Obstetrics & Gynecology | DX: O09.893 Supervision of other high risk pregnancies, third trimester (principal); N89.8 Other specified noninflammatory disorders of vagina; Z3A.00 Weeks of gestation of pregnancy not specified | CPT/HCPCS: 82947; 87210 ==

== ENCOUNTER → 2020-04-29 08:40 | Outpatient (BNVA) | payer MEDICAID, SELFPAY | PROVIDERS: Family Provider Nurse Practitioner Family; Visit Provider Obstetrics & Gynecology | DX: Z30.014 Encounter for initial prescription of intrauterine contraceptive device (principal) | CPT/HCPCS: 81025 ==

== ENCOUNTER → 2020-08-03 12:03 | Outpatient (BNVA) | payer MEDICAID, SELFPAY | PROVIDERS: Family Provider Nurse Practitioner Family; Visit Provider Obstetrics & Gynecology | DX: N93.8 Other specified abnormal uterine and vaginal bleeding (principal) | CPT/HCPCS: 84146; 84443; 85027 ==

== ENCOUNTER 2021-01-09 12:07 | Emergency (ER) | payer MEDICAID, SELFPAY ==
[2021-01-09 12:12] VITALS: BP 143/104; PULSE 93; RESP 14; TEMP 36.7; O2SAT 100; BMI 31.1
--- NOTE | 2021-01-09 12:27 | US_ITS ---
WS: [id number] ULTRASOUND SOFT TISSUES LEFT labia. HISTORY: abscess COMPARISON: None available. TECHNIQUE: 2-D and color Doppler imaging is submitted. There is an inflammatory collection measuring 1.3 x 0.9 cm with mild peripheral vascularity in the LE FT labia. There is extension of this inflammatory collection superficially. This is not a well-formed abscess and there is no liquefaction at this time. US/US soft tissue/extremity 47803 IMPRESSION: Phlegmonous inflammatory collection centered in the LEFT labia. No liquefaction to suggest abscess.
[2021-01-09 12:59] LABS: Basophils # 0.1 10^3/uL (0.0-0.1); Basophils % 0.5 %; Eosinophils # 0.1 10^3/uL (0.0-0.8); Eosinophils % 0.6 %; Hematocrit 41.5 % (37.0-47.0); Hemoglobin 13.5 g/dL (11.5-15.3); Lymphocytes # 2.1 10^3/uL (0.8-4.8); Lymphocytes % 22.2 %; Mean Corpuscular HGB Conc 32.5 g/dL (30.0-36.0); Mean Corpuscular Hemoglobin 27.8 pg (28.0-34.0); Mean Corpuscular Volume 85.6 fL (81-99); Monocytes # 0.4 10^3/uL (0.2-0.9); Monocytes % 4.4 %; Neutrophils # 6.85 10^3/uL (1.8-7.7); Neutrophils % 71.9 %; Nucleated Red Blood Cells % 0 %; Platelet Count 295 10^3/cmm (130-400); Red Blood Count 4.85 10^6/uL (4.1-5.3); Red Cell Distribution Width 13.4 % (12.1-15.1); White Blood Count 9.5 10^3/uL (4.0-10.0)
--- NOTE | 2021-01-09 13:29 | ED_ITS ---
HPI - Skin/Abscess/Foreign Bdy General: Chief complaint: Skin/Abscess/Foreign Body Stated complaint: ABSCESS IN GROIN AREA Time Seen by Provider: 01/09/21 12:17 History of Present Illness: HPI narrative: 30-year-old female comes in complaining of left labial cyst/abscess. She has had it for several days she is manipulated at home able to get a small amount of drainage but not able to completely resolve it. It is enlarged and is difficult for her even to walk at this point. MD complaint: abscess/boil Onset (ago): day(s) (2) Severity: severe Quality: burning and stabbing Pain Consistency: constant Relieving factors: cold therapy Exacerbating factors: movement Associated symptoms: Deny arthralgias, chills, cough, fever(s), itching, myalgias, nausea, rigidity, short of breath or vomiting Treatments prior to arrival: attempted to drain pus at home Review of Systems Const: Denies: fever(s) or chills ENMT: Denies: throat pain, ear or mastoid pain, nasal discharge or nasal congestion Card: Denies: chest pain, edema, dyspnea on exertion or orthopnea Resp: Denies: dyspnea, productive cough or non-productive cough GI: Denies: nausea or vomiting : Denies: flank pain, difficulty voiding, dysuria, urinary frequency or urinary urgency Skin/Breast: Denies: rash or pruritus PFSH ED PFSH: Medical History (Updated 01/09/21 @ 15:05 by Donovan Oh DO) Blood type A- History of gestational diabetes mellitus (GDM) GDM in first . History of kidney stones Surgical History History of section, low transverse (02/29/20) Due to failure to progress, labor x17 hours, [place], [place], Dr. De Jesus. Female infant weighing 10# 6 OZ. S/P cholecystectomy (~05/2013) Laparoscopic. S/P tonsillectomy (~1998) Family History Family/Other Diabetes Paternal uncle, Father's brothers and sisters (multiple ones have it) Patient denies medical problems Breast, cervical, uterine, ovarian, colon cancer, DVT/PE Grandmother Hyperlipidemia Maternal Grandfather Prostate cancer Paternal Social History Smoking and tobacco status: never smoked Alcohol intake: never Female Reproductive History: Para: 0 Physical Exam Const: COMMON NORMALS: no acute distress GENERAL APPEARANCE: cooperative and comfortable ORIENTATION/CONSCIOUSNESS: Yes awake, Yes oriented to person, Yes oriented to place and Yes oriented to time HENMT: COMMON NORMALS: normocephalic, atraumatic and hearing grossly normal bilaterally HEAD & SCALP: normocephalic and atraumatic Neck/C-Spine: COMMON NORMALS: no JVD Resp: COMMON NORMALS: normal respiratory effort, No retractions, No use of accessory muscles and clear to auscultation bilaterally AUSCULTATION: clear to auscultation bilaterally Cardio: COMMON NORMALS: no JVD, regular rate, regular rhythm and No murmurs present (Cardio) RATE: regular rate RHYTHM: regular rhythm GI: COMMON NORMALS: Soft to palpation and No hepatosplenomegaly present AUSCULTATION: Yes normoactive bowel sounds PALPATION: Yes Soft to palpation, No Tenderness to palpation present (GI), No Guarding due to palpation present (GI) and Yes No hepatosplenomegaly present Back/Pelvis: OTHER: Sniffing and swelling with dried superficial eschar on the left inferior aspect labia majora there is no pointing no active drainage. Is a palpable abscess. Extremity: COMMON NORMALS: normal to inspection, capillary refill normal, no clubbing, cyanosis or edema, no calf tenderness and no pedal edema Neuro: SENSORIUM/ORIENTATION: Yes oriented to person, Yes oriented to place and Yes oriented to time Procedures Abscess I/D Site: other (Labia majora) Side (if applicable): right Local Anesthetic: lidocaine 2% and with epi Amount of anesthesia used (mL): 5 Technique: incised with #11 blade Amount of fluid expressed (mL): 3 Packing used?: plain Procedural Sedation Indication: incision and drainage of abscess Ketamine dose (mg): 200 Complications: Respiratory Depression-Repositioning Required Interventions: airway repositioned Course Vital Signs: Vital signs: Vital Signs Temperature 98.1 F 01/09/21 12:12 Pulse Rate 81 01/09/21 18:48 Respiratory Rate 16 01/09/21 18:48 Blood Pressure 149/102 01/09/21 18:48 Pulse Oximetry 98 01/09/21 18:48 MDM - Skin/Abscess/Foreign Bdy MDM Narrative: Medical decision making narrative: Small amount of purulent fluid abscess with large indurated area was able to break it up including some septations wound packed with gauze. As the patient emerged from the conscious sedation had some nausea and vomiting which was treated with Zofran. Pain well controlled discharged home with antibiotics pain control return to the ER or to the clinic tomorrow for packing replacement. Lab Data: Labs: Lab Results 01/09/21 Range/Units 12:33 WBC 9.5 (4.0-10.0) 10^3/ uL RBC 4.85 (4.1-5.3) 10^6/u L Hgb 13.5 (11.5-15.3) g/dL Hct 41.5 (37.0-47.0) % MCV 85.6 (81-99) fL MCH 27.8 L (28.0-34.0) pg MCHC 32.5 (30.0-36.0) g/dL RDW 13.4 (12.1-15.1) % Plt Count 295 (130-400) 10^3/c mm MPV 9.0 (7.4-10.4) fL Neut % (Auto) 71.9 % Lymph % (Auto) 22.2 % [place] % (Auto) 4.4 % Eos % (Auto) 0.6 % Baso % (Auto) 0.5 % Neut # (Auto) 6.85 (1.8-7.7) 10^3/u L Lymph # (Auto) 2.1 (0.8-4.8) 10^3/u L [place] # (Auto) 0.4 (0.2-0.9) 10^3/u L Eos # (Auto) 0.1 (0.0-0.8) 10^3/u L Baso # (Auto) 0.1 (0.0-0.1) 10^3/u L Nucleated RBC % (a uto) 0 % Nucleated RBCs # 0.0 /100WBC Discharge Plan Discharge Patient Disposition: Home Clinical Impression: Abscess Condition: Stable Prescriptions: New Bactrim DS 800-160 mg tablet 1 tab PO BID 10 Days Qty: 20 RF: 0 hydrocodone-acetaminophen 5-325 mg tablet 1 tab PO Q6H PRN (Reason: pain) Qty: 25 RF: 0 No Action Mirena 20 mcg/24 hours (5 yrs) 52 mg intrauterine device See Rx Instructions INTRAUTERI .COMPLEX RF: 0 Xulane 150-35 mcg/24 hr patch weekly 1 patch transdermal .COMPLEX Qty: 3 RF: 2 Discharge Orders: Discharge ED (Routine); Ordered 01/09/21 Ordered By: Donovan Oh Discharge Diet: Advance as tolerated Discharge Activity: Resume usual activity Patient Instructions: Abscess (ED), Opioid Safety Activity Restrictions/Additional Instructions: To the emergency room or to your primary care doctor's office or urgent care to have the packing changed within 24 hours Coding Level of Care Code ED Tree Trimmer Helper for Jocelyne Middleton Exam Detailed
[2021-01-09 14:01] VITALS: BP 150/99; PULSE 82; RESP 11; O2SAT 100
[2021-01-09] MEDS: fentaNYL 50 mcg/mL INJ 2mL 25 MCG IVP (14:08)
[2021-01-09 14:36] VITALS: BP 152/111; PULSE 86; RESP 17; O2SAT 99
[2021-01-09] MEDS: ondansetron 2 mg/ML SDV 2 mL 4 MG IVP (15:15)
[2021-01-09] MEDS: sodium chloride 0.9% 1,000 ML 999 ML IV (16:16)
[2021-01-09] MEDS: promethazine 25 mg/mL SDV 1 mL IM (16:42)
[2021-01-09 17:07] VITALS: BP 157/106; PULSE 91; RESP 20; O2SAT 99
[2021-01-09 18:48] VITALS: BP 149/102; PULSE 81; RESP 16; O2SAT 98
== END 2021-01-09 18:49 | disposition home or self-care (01) ==
PROVIDERS: Emergency Provider Family Medicine
DX: N76.4 Abscess of vulva (principal)
CPT/HCPCS: 56405; 76882; 85025; 87070; 87077; 87186; 96361; 96372; 96374; 96375; 99284; J2405; J2550; J3010; J3490; J7030

== ENCOUNTER 2021-01-10 17:05 | Emergency (ER) | payer MEDICAID, SELFPAY ==
[2021-01-10 17:06] VITALS: BP 143/84; PULSE 117; RESP 16; TEMP 36.3; O2SAT 100; BMI 33.6
--- NOTE | 2021-01-10 17:56 | ED_ITS ---
Documented by User: Donovan Oh DO 01/12/21 06:33 HPI - Skin/Abscess/Foreign Bdy General: Chief complaint: Skin/Abscess/Foreign Body Stated complaint: ABSCESS WORSE PER [facility] [place] Time Seen by Provider: 01/10/21 17:40 History of Present Illness: HPI narrative: 30-year-old female was seen yesterday with a posterior labial majora abscess on the left. It was incised and drained under conscious sedation. Incise drain culture to send home with packing to recovery replace today. She went to her primary care doctor did not feel comfortable repacking. They directed her to the emergency room. She was sent home yesterday with Bactrim and with hydrocodone. The preliminary culture does show some heavy staph on the wound culture done yesterday at the time of incision and drainage. [facility] ED PFSH: Medical History (Updated 01/10/21 @ 19:50 by Rafael Spann MD) Blood type A- History of gestational diabetes mellitus (GDM) GDM in first . History of kidney stones Surgical History History of section, low transverse (02/29/20) Due to failure to progress, labor x17 hours, [place], [place], Dr. De Jesus. Female infant weighing 10# 6 OZ. S/P cholecystectomy (~05/2013) Laparoscopic. S/P tonsillectomy (~1998) Family History Family/Other Diabetes Paternal uncle, Father's brothers and sisters (multiple ones have it) Patient denies medical problems Breast, cervical, uterine, ovarian, colon cancer, DVT/PE Grandmother Hyperlipidemia Maternal Grandfather Prostate cancer Paternal Social History Smoking and tobacco status: never smoked Alcohol intake: never Female Reproductive History: Para: 0 Spontaneous abortions: No Course Vital Signs: Vital signs: Vital Signs Temperature 97.4 F L 01/10/21 17:06 Pulse Rate 102 H 01/10/21 20:06 Respiratory Rate 18 01/10/21 20:06 Blood Pressure 106/74 01/10/21 20:06 Pulse Oximetry 98 01/10/21 20:06 MDM - Skin/Abscess/Foreign Bdy MDM Narrative: Medical decision making narrative: I seen patient and ordered labs. Discussed exam with her when she was getting changed to have it done. This occurred at time of change of shift. Care turned over to Dr. Spann see his notes for exam, final diagnosis and disposition. Lab Data: Labs: Lab Results 01/10/21 01/10/21 Range/Units 17:59 17:59 WBC 10.8 H (4.0-10.0) 10^3/ uL RBC 4.79 (4.1-5.3) 10^6/u L Hgb 13.4 (11.5-15.3) g/dL Hct 41.8 (37.0-47.0) % MCV 87.3 (81-99) fL MCH 28.0 (28.0-34.0) pg MCHC 32.1 (30.0-36.0) g/dL RDW 13.5 (12.1-15.1) % Plt Count 286 (130-400) 10^3/c mm MPV 8.9 (7.4-10.4) fL Neut % (Auto) 70.8 % Lymph % (Auto) 22.5 % Terry % (Auto) 5.3 % Eos % (Auto) 0.6 % Baso % (Auto) 0.6 % Neut # (Auto) 7.63 (1.8-7.7) 10^3/u L Lymph # (Auto) 2.4 (0.8-4.8) 10^3/u L Terry # (Auto) 0.6 (0.2-0.9) 10^3/u L Eos # (Auto) 0.1 (0.0-0.8) 10^3/u L Baso # (Auto) 0.1 (0.0-0.1) 10^3/u L Nucleated RBC % (a uto) 0 % Nucleated RBCs # 0.0 /100WBC Sodium 137 (136-145) mmol/L Potassium 3.6 (3.5-5.1) mmol/L Chloride 99 (98-107) mmol/L Carbon Dioxide 29 (22-29) mmol/L Anion Gap 12.6 (5-19) BUN 8 (6-20) mg/dL Creatinine 0.6 (0.5-0.9) mg/dL GFR Calculation 115.9 (90-130) mL/min Glucose 96 (65-115) mg/dL Calculated Osmolal ity 282 L (285-295) mOsm/k g Calcium 8.3 L (8.5-10.5) mg/dL Discharge Plan Discharge Patient Disposition: Home Clinical Impression: Abscess Condition: Stable Prescriptions: No Action Mirena 20 mcg/24 hours (5 yrs) 52 mg intrauterine device See Rx Instructions INTRAUTERI .COMPLEX RF: 0 Xulane 150-35 mcg/24 hr patch weekly 1 patch transdermal .COMPLEX Qty: 3 RF: 2 Bactrim DS 800-160 mg tablet 1 tab PO BID 10 Days Qty: 20 RF: 0 hydrocodone-acetaminophen 5-325 mg tablet 1 tab PO Q6H PRN (Reason: pain) Qty: 25 RF: 0 Discharge Orders: Discharge ED (Routine); Ordered 01/10/21 Ordered By: Rafael Spann Discharge Diet: Advance as tolerated Discharge Activity: Resume usual activity Patient Instructions: Abscess (ED), Opioid Safety Coding Level of Care Code ED Community Outreach Worker for Chg Fwd Documented by User: Rafael Spann MD 01/10/21 20:06 HPI - Skin/Abscess/Foreign Bdy General: Chief complaint: Skin/Abscess/Foreign Body Stated complaint: ABSCESS WORSE PER [facility] [place] Time Seen by Provider: 01/10/21 17:40 PFS ED PFSH: Medical History (Updated 01/10/21 @ 19:50 by Rafael Spann MD) Blood type A- History of gestational diabetes mellitus (GDM) GDM in first . History of kidney stones Surgical History History of section, low transverse (02/29/20) Due to failure to progress, labor x17 hours, [place], [place], Dr. De Jesus. Female infant weighing 10# 6 OZ. S/P cholecystectomy (~05/2013) Laparoscopic. S/P tonsillectomy (~1998) Family History Family/Other Diabetes Paternal uncle, Father's brothers and sisters (multiple ones have it) Patient denies medical problems Breast, cervical, uterine, ovarian, colon cancer, DVT/PE Grandmother Hyperlipidemia Maternal Grandfather Prostate cancer Paternal Social History Smoking and tobacco status: never smoked Alcohol intake: never Course Vital Signs: Vital signs: Vital Signs Temperature 97.4 F L 01/10/21 17:06 Pulse Rate 102 H 01/10/21 20:06 Respiratory Rate 18 01/10/21 20:06 Blood Pressure 106/74 01/10/21 20:06 Pulse Oximetry 98 01/10/21 20:06 MDM - Skin/Abscess/Foreign Bdy MDM Narrative: Medical decision making narrative: Took patient from Dr. Tapia and did remove her packing and placed another small packing. I did an ultrasound of the area did not see any more abscess formation. She is stable fo r discharge and return in 24 to 48 hours for wound check. Lab Data: Labs: Lab Results 01/10/21 01/10/21 Range/Units 17:59 17:59 WBC 10.8 H (4.0-10.0) 10^3/ uL RBC 4.79 (4.1-5.3) 10^6/u L Hgb 13.4 (11.5-15.3) g/dL Hct 41.8 (37.0-47.0) % MCV 87.3 (81-99) fL MCH 28.0 (28.0-34.0) pg MCHC 32.1 (30.0-36.0) g/dL RDW 13.5 (12.1-15.1) % Plt Count 286 (130-400) 10^3/c mm MPV 8.9 (7.4-10.4) fL Neut % (Auto) 70.8 % Lymph % (Auto) 22.5 % Terry % (Auto) 5.3 % Eos % (Auto) 0.6 % Baso % (Auto) 0.6 % Neut # (Auto) 7.63 (1.8-7.7) 10^3/u L Lymph # (Auto) 2.4 (0.8-4.8) 10^3/u L Terry # (Auto) 0.6 (0.2-0.9) 10^3/u L Eos # (Auto) 0.1 (0.0-0.8) 10^3/u L Baso # (Auto) 0.1 (0.0-0.1) 10^3/u L Nucleated RBC % (a uto) 0 % Nucleated RBCs # 0.0 /100WBC Sodium 137 (136-145) mmol/L Potassium 3.6 (3.5-5.1) mmol/L Chloride 99 (98-107) mmol/L Carbon Dioxide 29 (22-29) mmol/L Anion Gap 12.6 (5-19) BUN 8 (6-20) mg/dL Creatinine 0.6 (0.5-0.9) mg/dL GFR Calculation 115.9 (90-130) mL/min Glucose 96 (65-115) mg/dL Calculated Osmolal ity 282 L (285-295) mOsm/k g Calcium 8.3 L (8.5-10.5) mg/dL Discharge Plan Discharge Patient Disposition: Home Clinical Impression: Abscess Condition: Stable Prescriptions: No Action Mirena 20 mcg/24 hours (5 yrs) 52 mg intrauterine device See Rx Instructions INTRAUTERI .COMPLEX RF: 0 Xulane 150-35 mcg/24 hr patch weekly 1 patch transdermal .COMPLEX Qty: 3 RF: 2 Bactrim DS 800-160 mg tablet 1 tab PO BID 10 Days Qty: 20 RF: 0 hydrocodone-acetaminophen 5-325 mg tablet 1 tab PO Q6H PRN (Reason: pain) Qty: 25 RF: 0 Discharge Orders: Discharge ED (Routine); Ordered 01/10/21 Ordered By: Rafael Spann Discharge Diet: Advance as tolerated Discharge Activity: Resume usual activity Patient Instructions: Abscess (ED), Opioid Safety Coding Level of Care Code ED Community Outreach Worker for Jocelyne Middleton
[2021-01-10 18:08] LABS: Basophils # 0.1 10^3/uL (0.0-0.1); Basophils % 0.6 %; Eosinophils # 0.1 10^3/uL (0.0-0.8); Eosinophils % 0.6 %; Hematocrit 41.8 % (37.0-47.0); Hemoglobin 13.4 g/dL (11.5-15.3); Lymphocytes # 2.4 10^3/uL (0.8-4.8); Lymphocytes % 22.5 %; Mean Corpuscular HGB Conc 32.1 g/dL (30.0-36.0); Mean Corpuscular Volume 87.3 fL (81-99); Mean Platelet Volume 8.9 fL (7.4-10.4); Monocytes # 0.6 10^3/uL (0.2-0.9); Monocytes % 5.3 %; Neutrophils # 7.63 10^3/uL (1.8-7.7); Neutrophils % 70.8 %; Nucleated Red Blood Cells % 0 %; Platelet Count 286 10^3/cmm (130-400); Red Blood Count 4.79 10^6/uL (4.1-5.3); Red Cell Distribution Width 13.5 % (12.1-15.1); White Blood Count 10.8 10^3/uL (4.0-10.0)
--- NOTE | 2021-01-10 18:12 | PC.NURSE ---
pt states had abscess come up about 4 days ago on labia. states was lanced yesterday but pain has gotten worse today. states is draining but has not been able to tell what color.
[2021-01-10 18:26] VITALS: RESP 18; O2SAT 97
[2021-01-10] MEDS: LORazepam 2 mg/mL INJ 1 mL 1 MG IM (18:26)
[2021-01-10] MEDS: HYDROmorphone 1 mg/mL INJ 1 mL IM (18:26)
[2021-01-10 18:46] LABS: Anion Gap 12.6 (5-19); Blood Urea Nitrogen 8 mg/dL (6-20); Calcium 8.3 mg/dL (8.5-10.5); Carbon Dioxide 29 mmol/L (22-29); Chloride 99 mmol/L (98-107); Glomerular Filtration Rate 115.9 mL/min (90-130); Glucose 96 mg/dL (65-115); Osmolality Calculated 282 mOsm/kg (285-295); Potassium 3.6 mmol/L (3.5-5.1); Sodium 137 mmol/L (136-145)
[2021-01-10 19:06] VITALS: BP 141/77; PULSE 95; RESP 18; O2SAT 100
[2021-01-10 19:14] VITALS: RESP 15; O2SAT 95
[2021-01-10] MEDS: HYDROmorphone 1 mg/mL INJ 1 mL IVP (19:14)
[2021-01-10] MEDS: clindamycin 600 MG/50 ML PREMIX 100 MG IV (19:17)
[2021-01-10 20:06] VITALS: BP 106/74; PULSE 102; RESP 18; O2SAT 98
== END 2021-01-10 20:20 | disposition home or self-care (01) ==
PROVIDERS: Family Medicine; Emergency Provider Emergency Medicine
DX: N76.4 Abscess of vulva (principal)
CPT/HCPCS: 80048; 85025; 96365; 96372; 96375; 99283; J1170; J2060; J3490

== ENCOUNTER 2021-06-19 14:52 | Emergency (ER) | payer MEDICAID, SELFPAY ==
[2021-06-19 15:05] VITALS: BP 109/75; PULSE 117; RESP 18; TEMP 37.6; O2SAT 95; BMI 24.7
--- NOTE | 2021-06-19 19:02 | XRR_ITS ---
PROCEDURE INFORMATION: Exam: XR Chest Exam date and time: 06/19/2021 7:02 PM Age: 30 years old Clinical indication: Shortness of breath; Additional info: Dyspnea, covid TECHNIQUE: Imaging protocol: XR of the chest. Views: 1 view. COMPARISON: CR Chest 1 [place] [id number] 10/24/2014 10:02 PM FINDINGS: Lungs: Decreased lung volumes. Patchy infrahilar airspace opacities. Pleural spaces: Unremarkable. No pleural effusion. No pneumothorax. Heart/Mediastinum: No cardiac enlargement. Vasculature: No vascular dilation. Bones/joints: Unremarkable. XR/XR chest 1V portable [id number] IMPRESSION: Patchy infrahilar airspace opacities are nonspecific. Sequela of atypical pneumonia included in the differential.
--- NOTE | 2021-06-19 21:09 | W.ED.SOB ---
HPI - SOB/Dyspnea General: Chief Complaint: Shortness of Breath/Dyspnea Stated Complaint: SOB, Covid + Time Seen by Provider: 06/19/21 20:54 History of Present Illness: HPI Narrative: 30-year-old female was diagnosed with pneumonia last week. Patient reports fever and chills and seemed to have gotten better but now has worsened again. Patient reports midsternal chest discomfort with deep breaths and coughing. Patient appears mildly unwell but not toxic. Patient is moving oxygen well. Associated symptoms: Reports fever(s) Review of Systems General: Reports: 10 or more systems reviewed and unremarkable except in HPI and below Const: Reports: fever(s) Resp: Reports: non-productive cough PFSH ED PFSH: Medical History (Updated 06/19/21 @ 21:08 by GAMAL Champion) Blood type A- History of gestational diabetes mellitus (GDM) GDM in first . History of kidney stones Surgical History History of section, low transverse (02/29/20) Due to failure to progress, labor x17 hours, [place], [place], Dr. De Jesus. Female infant weighing 10# 6 OZ. S/P cholecystectomy (~05/2013) Laparoscopic. S/P tonsillectomy (~1998) Family History Family/Other Diabetes Paternal uncle, Father's brothers and sisters (multiple ones have it) Patient denies medical problems Breast, cervical, uterine, ovarian, colon cancer, DVT/PE Grandmother Hyperlipidemia Maternal Grandfather Prostate cancer Paternal Social History Smoking and tobacco status: never smoked Alcohol intake: never Female Reproductive History: Para: 0 Spontaneous abortions: No Physical Exam Const: COMMON NORMALS: no acute distress and patient oriented x3 GENERAL APPEARANCE: cooperative HENMT: COMMON NORMALS: normocephalic and Normal external nose present HEAD & SCALP: normal to inspection and normocephalic NOSE: Normal external nose present MOUTH: Normal oral and palatal mucosa present Eye: GENERAL EYE: appearance normal, both eyes and all related structures Neck/C-Spine: COMMON NORMALS: full ROM Chest: COMMONS NORMALS: normal inspection of the chest Resp: COMMON NORMALS: normal respiratory effort EFFORT & INSPECTION: Yes able to speak in complete sentences AUSCULTATION: rhonchi Cardio: COMMON NORMALS: regular rate and regular rhythm RATE: regular rate RHYTHM: regular rhythm GI: COMMON NORMALS: non-tender Extremity: COMMON NORMALS: normal to inspection Neuro: COMMON NORMALS: patient oriented x3 and moves all extremities Psych: COMMON NORMALS: mental status grossly normal and cooperative Skin: COMMON NORMALS: no rashes or lesions noted GENERAL SKIN EXAM: no rashes or lesions noted Course Vital Signs: Vital signs: Vital Signs Temperature 99.7 F H 06/19/21 15:05 Pulse Rate 117 H 06/19/21 15:05 Respiratory Rate 18 06/19/21 15:05 Blood Pressure 109/75 06/19/21 15:05 Pulse Oximetry 95 06/19/21 15:05 MDM - SOB/Dyspnea MDM Narrative: Medical decision making narrative: Patient comes in today with cough and congestion with recurrent fever. Patient states that he was diagnosed with Covid 19/1 week ago and since then has started to feel better except for the last 2 days. Since then patient started running a fever again and having some chest discomfort. On exam patient has some rhonchi in the lung dick. Lungs are clear to auscultation. Vital signs were normal except for a slight elevation in pulse at 117. Pulse ox station was 95%. Differential diagnosis includes pneumonia, COVID-19 sequela, viral pneumonia. Chest x-ray did indicate atypical pneumonia. This most likely is due to the viral syndrome although could be a secondary bacterial infection right away the patient explains her symptoms. We will go ahead and cover of antibiotics, steroid, and a albuterol inhaler. Reviewed with patient other supportive care means. Patient reported understanding and agreed to plan. Discharge Plan Discharge Patient Disposition: Home Clinical Impression: Pneumonia due to 2019 novel coronavirus Condition: Stable Prescriptions: New azithromycin 250 mg tablet 250 mg PO DAILY Qty: 4 RF: 0 dexamethasone 6 mg tablet 6 mg PO DAILY Qty: 7 RF: 0 No Action Mirena 20 mcg/24 hours (5 yrs) 52 mg intrauterine device See Rx Instructions INTRAUTERI .COMPLEX RF: 0 Discharge Orders: Discharge ED (Routine); Ordered 06/19/21 Ordered By: Logan Triana Discharge Diet: Usual diet Discharge Activity: Increase activity as tolerated Patient Instructions: Pneumonia (ED), Opioid Safety Activity Restrictions/Additional Instructions: Home and rest. Drink plenty of fluids. Take antibiotics and steroids as directed. Use albuterol inhaler 2 puffs every 4 hours for cough congestion and shortness of breath. Activity as tolerated. Monitor pulse oxygen. If oxygen level goes below 90% stand up and move around and take a few deep breaths. If he does not recover above 90% you need to be further evaluated either in your doctor's office or the emergency room. Return to the emergency room for worsening chest pain or uncontrolled shortness of breath. Follow-up with primary care in 1 week as needed. Return to the emergency department as needed. Stand Alone Forms: Work/School Release Coding Level of Care Code ED Graphic Designer for Jocelyne Middleton Exam Comprehensive
[2021-06-19] MEDS: albuterol 8 gm MDI 2 PUFF INHALATION (21:42)
[2021-06-19 21:43] VITALS: PULSE 114; RESP 22; O2SAT 97
[2021-06-19 21:48] VITALS: PULSE 122
[2021-06-19] MEDS: azithromycin 250 mg Tablet 500 MG PO (22:37)
[2021-06-19] MEDS: dexamethasone 10 mg/mL INJ IM (22:37)
[2021-06-19] MEDS: cefTRIAXone 1,000 MG in lidocaine 1% 2.1 ML 2.1 MG IM (22:37)
[2021-06-19 22:48] VITALS: BP 132/90; PULSE 120; RESP 19; TEMP 37.7; O2SAT 96
== END 2021-06-19 22:50 | disposition home or self-care (01) ==
PROVIDERS: Emergency Provider Nurse Practitioner Family
DX: U07.1 COVID-19 (principal); J12.82 Pneumonia due to coronavirus disease 2019
CPT/HCPCS: 71045; 94640; 96372; 99284; J0696; J1100; J3535; Q0144

== ENCOUNTER → 2021-06-30 15:23 | Outpatient (BNVA) | payer MEDICAID, SELFPAY | PROVIDERS: Visit Provider Nurse Practitioner Family | DX: M89.8X9 Other specified disorders of bone, unspecified site (principal) | CPT/HCPCS: 73660 ==

== ENCOUNTER → 2021-07-10 16:22 | Outpatient (BNVA) | payer MEDICAID, SELFPAY | PROVIDERS: Visit Provider Podiatrist Foot & Ankle Surgery | DX: Z01.812 Encounter for preprocedural laboratory examination (principal); Z20.822 Contact with and (suspected) exposure to COVID-19 | CPT/HCPCS: 87635 ==

== ENCOUNTER 2021-07-28 06:19 | Day surgery (SDC) | payer MEDICAID, SELFPAY ==
[2021-07-27 16:24] VITALS: BMI 29.2
[2021-07-28 06:33] VITALS: BP 143/101; PULSE 77; RESP 18; TEMP 36.4; O2SAT 100
--- NOTE | 2021-07-28 06:36 | P.HPUD_ITS ---
Surgery/Procedure H&P Update DATE OF PROCEDURE: July 28, 2021 DATE H&P PERFORMED: 07/04/21 H&P UPDATE INFORMATION: I have reviewed H&P completed within last 30 days, I have examined patient prior to procedure, No changes to prior documentation and H&P is in [facility] EMR on date indicated PREOP DIAGNOSIS: Subungual exostosis left great toe PLANNED PROCEDURE: Operation Date: 07/28/21 07:00 Proposed Procedures p Exostectomy(Left) - Morales Jack DPM
--- NOTE | 2021-07-28 06:47 | ANES.PREANE2 ---
Pre-Anesthetic Assessment Pre-Anesthetic Assessment: Height/Weight: Height 1.57 m Weight 72.575 kg Temp Pulse Resp BP Pulse Ox 97.5 F L 77 18 143/101 100 07/28/21 06:33 07/28/21 06:33 07/28/21 06:33 07/28/21 06:33 07/28/21 06:33 Preop Diagnosis: Subungual exostosis left great toe Proposed Procedure: Operation Date: 07/28/21 07:00 Proposed Procedures p Exostectomy(Left) - MAI StoneM Was Beta Diego taken within 24 hours: N/A Was Clonidine taken within 24 hours: N/A Last intake: Intake Last Liquid Date 07/27/21 Last Liquid Time 20:30 Last Solid Date 07/27/21 Last Solid Time 20:30 Social: Social History: No alcohol and No tobacco Exam: Pre-Anes Outpt Exam: alert, oriented x 3, clear to auscultation bilaterally and regular rate & rhythm Airway: Submandibular: WNL Cervical ROM: WNL MP: 2 Dentition: Partials (upper partial) History/ROS: No significant history except as noted and No significant complaints Pulmonary: Pulmonary: None reported CV/HEM: CV/HEM: None reported : : None reported Hepatic: Hepatic: None reported GI: GI: None reported Metabolic: Metabolic: None reported Musc/skel: Musc/skel: None reported Neuropsych: Neuropsych: None reported Anesthetic Plan: ASA status: 1 Anesthesia: Anesthesia Evaluation and MAC Risk of > 500 ml blood loss (7ml/kg in children): No PFSH Anesthesia PFSH: Medical History Blood type A- History of gestational diabetes mellitus (GDM) GDM in first . History of kidney stones Surgical History History of section, low transverse (02/29/20) Due to failure to progress, labor x17 hours, [place], [place], Dr. De Jesus. Female weighing 10# 6 OZ. S/P cholecystectomy (~05/2013) Laparoscopic. S/P tonsillectomy (~1998) Family History Family/Other Diabetes Paternal uncle, Father's brothers and sisters (multiple ones have it) Patient denies medical problems Breast, cervical, uterine, ovarian, colon cancer, DVT/PE Grandmother Hyperlipidemia Maternal Grandfather Prostate cancer Paternal Social History Smoking and tobacco status: never smoked Alcohol intake: never Female Reproductive History: Para: 0 Spontaneous abortions: No Data Anesthesia Cardiac Studies: No Data to Display
[2021-07-28] MEDS: sodium chloride 0.9% 1,000 ML 30 ML IV (06:54)
[2021-07-28 06:56] LABS: OR HCG Qualitative Urine Negative (Negative)
[2021-07-28] MEDS: lidocaine 1% INJ 20 mL 10 ML XX (07:15)
[2021-07-28 07:21] VITALS: BP 140/99; PULSE 89; RESP 20; TEMP 36.8; O2SAT 99
[2021-07-28 07:25] VITALS: BP 142/92; PULSE 84; RESP 17; TEMP 36.6; O2SAT 99
--- NOTE | 2021-07-28 07:27 | XR_ITS ---
WS: [id number] Left foot, 3 views, 07/28/2021 Clinical Data: post op Comparison: Left foot, 06/30/2021. Findings: The subungual exostosis of the medial aspect of the distal phalanx of the big toe is no longer presen t. The remainder of the left foot is unremarkable. XR/XR foot LT min 3V* [id number] Impression: Removal of the exostosis of distal phalanx of the left big toe.
[2021-07-28 07:28] VITALS: BP 131/87; PULSE 77; RESP 18; TEMP 36.6; O2SAT 97
--- NOTE | 2021-07-28 07:39 | PM.OP ---
Operative Report Date of procedure: July 28, 2021 Pre-op Diagnosis: Subungual exostosis left great toe Post-op diagnosis: same Post-op Findings: Paronychia and exostosis left hallux distal phalanx Procedure Done: Exostectomy left foot and toenail avulsion left great toenail. Implants: None Pathology: Soft tissue specimen and bone left great toe sent to pathology Surgeon: Morales Jack D.P.M. Supervisor Blasting: Karol Anesthesia: MAC Estimated blood loss: Less than 5 mL Tourniquet time: 4 IV fluids: none Urine output: none Complications: none Findings: Soft tissue and bony hypertrophy/exostosis dorsal aspect of the left distal phalanx Condition: stable Disposition: PACU Brief History: Patient had a progression of soft tissue like to have this removed permanently. I advised her that there is certainly a risk of recurrence approximately 30% of the time. Patient is agreeable wishes to proceed. Other risks include pain, bleeding, numbness, infection, abnormal growth pattern to the nail plate moving forward. Recurrence of soft tissue mass and need for further surgical intervention. Patient is n.p.o. since midnight. Informed consent signed I initialed her left foot. Wishes to proceed. No guarantees written, expressed or implied. Procedure: Under mild sedation the patient was brought to the operating room and remained on the gurney in the supine position. Timeout was performed. Anesthesia was then administered by the anesthesia service. Local anesthesia injected by myself 12 cc of one-to-one mixture 1% lidocaine and 0.5 sent Marcaine plain and a left hallux block fashion. Well-padded pneumatic tourniquet applied to the left ankle. Left lower extremity was scrubbed, prepped and draped utilizing normal aseptic technique. Left foot was then wrapped with an Esmarch bandage and a tourniquet inflated to 250 mmHg. Attention was directed to the left hallux where the nail plate was loosened of its soft tissue attachments and avulsed in toto and passed from operative field. Soft tissue mass with soft tissue dorsally probing down to bone was appreciated this is sharply excised and sent to pathology for review. Bone curette utilized to smooth out all rough edges and confirm viable margin appeared to have healthy bone at the base after debridement. Area was flushed with saline dressed with Neosporin, Xeroform, sterile gauze, Erika and Coban. Tourniquet was deflated and a prompt hyperemic response is noted to the distal digits of the left foot. Patient tolerated the procedure well and was transferred to the PACU with vital signs stable and vascular status intact. Following a period of postoperative monitoring she will be discharged home is to leave the dressing on for the next 3 days and then transition to Neosporin and a Band-Aid twice daily. She will be prescribed hydrocodone to be taken judiciously as needed for pain. Will follow up in podiatry clinic next week for nurse visit/dressing change on August 04, 2021. Patient provided discharge instructions for at home care and follow-up as well as my cell phone number to contact me with questions or concerns.
[2021-07-28 08:04] VITALS: BP 138/91; PULSE 89; RESP 17; TEMP 36.7; O2SAT 100
--- NOTE | 2021-07-28 08:45 | SUR.PHASEI ---
Patient was discharged late due to her ride went back to [facility] and was not answering his phone.
--- NOTE | 2021-07-28 16:00 | ANE.PACU2 ---
Inpatient post-anesthesia follow up: Airway intact: Yes Vital signs: Temperature 98.1 F Pulse Rate 89 Respiratory Rate 17 Blood Pressure 138/91 Pulse Oximetry 100 Oxygen Delivery Me thod Room Air Oxygen Flow Rate Fraction of Inspir ed Oxygen Hydration adequate: Yes Nausea and vomiting: No Pain level: 2 Mental status: Baseline
== END 2021-07-28 08:45 | disposition home or self-care (01) ==
PROVIDERS: PCP Family Medicine; Visit Provider Podiatrist Foot & Ankle Surgery
PROC: (CPT 28288; principal; 2021-07-28 07:00)
DX: M89.9 Disorder of bone, unspecified (principal)
CPT/HCPCS: 11730; 28108; 73630; 84703; 88307; 96365; J0690; J2250; J3490; J7030

== ENCOUNTER → 2021-11-13 15:45 | Outpatient (BNVA) | payer MEDICAID, SELFPAY | PROVIDERS: PCP Family Medicine; Visit Provider Nurse Practitioner Family | DX: N23 Unspecified renal colic (principal) | CPT/HCPCS: 81000 ==

== ENCOUNTER → 2022-06-13 11:08 | Outpatient (BNVA) | payer MEDICAID, SELFPAY | PROVIDERS: PCP Family Medicine; Visit Provider Emergency Medicine | DX: Z20.822 Contact with and (suspected) exposure to COVID-19 (principal); R11.0 Nausea | CPT/HCPCS: 87635 ==

== ENCOUNTER → 2022-08-09 09:39 | Outpatient (BNVA) | payer MEDICAID, SELFPAY | PROVIDERS: PCP Family Medicine; Visit Provider Emergency Medicine | DX: M25.572 Pain in left ankle and joints of left foot (principal) | CPT/HCPCS: 73610 ==

== ENCOUNTER → 2022-10-24 15:35 | Outpatient (BNVA) | payer MEDICAID, SELFPAY | PROVIDERS: PCP Family Medicine; Visit Provider Obstetrics & Gynecology | DX: E66.9 Obesity, unspecified (principal) | CPT/HCPCS: 83036; 83525; 84443; 87070; 87205 ==

== ENCOUNTER → 2023-07-11 16:19 | Outpatient (BNVA) | payer MEDICAID, SELFPAY | PROVIDERS: PCP Family Medicine; Visit Provider Emergency Medicine | DX: M25.561 Pain in right knee (principal) | CPT/HCPCS: 73562 ==

== ENCOUNTER → 2023-11-19 08:30 | Outpatient (BNVA) | payer MEDICAID, SELFPAY | PROVIDERS: PCP Family Medicine; Visit Provider Nurse Practitioner Women's Health | DX: Z34.90 Encounter for supervision of normal pregnancy, unspecified, unspecified trimester | CPT/HCPCS: 81025; 84702 ==

== ENCOUNTER 2023-11-26 14:08 | Emergency (ER) | payer MEDICAID, SELFPAY ==
--- NOTE | 2023-11-26 14:11 | USR_ITS ---
PROCEDURE INFORMATION: Exam: US First Trimester, Transabdominal and US , Transvaginal Exam date and time: 11/26/2023 2:46 PM Age: 33 years old Clinical indication: Screening exam; Routine US, uterus; Additional info: Abdominal pain; TECHNIQUE: Imaging protocol: Real-time transabdominal obstetrical ultrasound of the maternal pelvis and a first trimester , less than 14 weeks 0 days, with image documentation. Transvaginal imaging was used for better evaluation of the fetus, adnexa, and/or cervix. COMPARISON: US OB F/U w BPP wo NST 02/25/2020 10:40 AM FINDINGS: Gestation: Fetus measures 6.1 x 6.7 x 9.2 cm. Embryonic/ heart rate: heart rate seen at 180 beats per minute. Extra-embryonic membranes/Placenta: Unremarkable. No subchorionic bleed. Amniotic fluid: Amniotic fluid and extra-amniotic fluid is normal for gestational age. BIOMETRY: Gestational age (AUA): 8 weeks 2 days Mangum-Rump length (CRL): 1.8 cm MATERNAL: Uterus: Unremarkable. Cervix: Unremarkable. Right ovary/adnexa: Unremarkable ovary. Left ovary/adnexa: Unremarkable ovary. Intraperitoneal space: No intraperitoneal free fluid. Other findings: Right maternal ovary unremarkable. Left maternal ovary nonvisualized. US/US OB <=14 wk fetus w transvag IMPRESSION: Live intrauterine gestation of 8 weeks 2 days age.
[2023-11-26 15:05] VITALS: BP 148/91; PULSE 72; RESP 18; TEMP 36.7; O2SAT 100; BMI 32.0
[2023-11-26 15:06] LABS: Basophils % 0.6 %; Eosinophils # 0.1 10^3/uL (0.0-0.8); Eosinophils % 0.9 %; Hematocrit 38.1 % (36-47); Lymphocytes # 1.8 10^3/uL (0.8-4.8); Lymphocytes % 26.4 %; Mean Corpuscular HGB Conc 33.1 g/dL (30-55); Mean Corpuscular Hemoglobin 28.3 pg (27-33); Mean Corpuscular Volume 85.6 fl (85-98); Mean Platelet Volume 8.9 fL (7.4-10.4); Monocytes # 0.4 10^3/uL (0.2-0.9); Monocytes % 5.3 %; Neutrophils # 4.51 10^3/uL (1.8-7.7); Neutrophils % 66.7 %; Nucleated Red Blood Cells % 0 %; Platelet Count 278 10^3/cmm (157-399); Red Blood Count 4.45 10^6/uL (3.85-5.65); Red Cell Distribution Width 13.3 % (12.1-15.1); White Blood Count 6.77 10^3/uL (3.29-11.43)
[2023-11-26 16:05] LABS: Alanine Aminotransferase 16 U/L (0-33); Albumin Level 3.9 g/dL (3.5-5.2); Alkaline Phosphatase 65 U/L (35-105); Anion Gap 15.7 (5-19); Aspartate Amino Transferase 15 U/L (0-32); Blood Urea Nitrogen 6 mg/dL (6-20); Calcium 9.4 mg/dL (8.5-10.5); Carbon Dioxide 23 mmol/L (22-29); Chloride 100 mmol/L (98-107); Globulin 3.5 g/dL (1.3-4.6); Glomerular Filtration Rate 140.4 mL/min (90-130); Glucose 81 mg/dL (65-115); Lipase 33 U/L (13-60); Osmolality Calculated 277 mOsm/kg (285-295); Potassium 3.7 mmol/L (3.5-5.1); Sodium 135 mmol/L (136-145); Total Bilirubin 0.7 mg/dL (0.15-1.2); Total Protein 7.4 g/dL (6.6-8.7)
--- NOTE | 2023-11-26 16:48 | ED_ITS ---
Documented by User: PIERO Dey 11/26/23 17:05 HPI - Abdominal Pain 2 General: Chief Complaint: Abdominal Pain Stated Complaint: unknow length, abd pain Time Seen by Provider: 11/26/23 16:29 Source: patient Mode of arrival: ambulatory Limitations: no limitations History of Present Illness: Patient is a 33-year-old female here for complaints of burning in her abdomen and feeling like her abdomen is stretching. Patient states she has had confirmed at [facility]. She was scheduled for a dating ultrasound later this month. Patient states she has had this feeling in her abdomen for several weeks. She has had some bloating and constipation. Over the past 3 days or so she has developed some diarrhea. She has occasionally had some nausea that she attributed to . She feels like her symptoms are not worsening. She has not had any vaginal bleeding or vaginal discharge. She has not been running fevers. Denies urinary complaints or flank pain. MD elicited complaint: abdominal pain Pertinent past history: none Onset (ago): week(s) Pain Consistency: intermittent Location: Diffuse Severity: moderate Quality: cramping and other (stretching, burning) Radiation: none Migration to: no migration Exacerbating factors: eating Relieving factors: nothing Associated Symptoms: Reports diarrhea and nausea; Denies chills, dysuria, fever(s), hematochezia, melena and vomiting Related Data: Patient : Yes Review of Systems 2 Const: Denies: fever(s), chills, body aches, fatigue or malaise Card: Denies: chest pain Resp: Denies: dyspnea GI: Reports: abdominal pain, nausea and diarrhea; Denies: vomiting, hematochezia or melena : Denies: flank pain, difficulty voiding, dysuria, urinary frequency, urinary urgency or urinary hesitancy Musc: Denies: neck pain, back pain, extremity pain or joint pain Skin/Breast: Reports: rash and pruritus Neuro: Denies: headache(s), numbness in extremities, weakness in extremities or sensory changes PFSH ED 2 PFSH: Medical History History of gestational diabetes mellitus (GDM) GDM in first . History of kidney stones Blood type A- Surgical History History of section, low transverse (02/29/20) Due to failure to progress, labor x17 hours, [place], [place], Dr. De Jesus. Female infant weighing 10# 6 OZ. S/P tonsillectomy (~1998) S/P cholecystectomy (~05/2013) Laparoscopic. Family History Family/Other Diabetes Paternal uncle, Father's brothers and sisters (multiple ones have it) Patient denies medical problems Breast, cervical, uterine, ovarian, colon cancer, DVT/PE Grandmother Hyperlipidemia Maternal High cholesterol Diabetes Grandfather Prostate cancer Paternal Social History Second hand smoke exposure: No Alcohol intake: never Substance/Drug Use: never Female Reproductive History: Para: 0 Spontaneous abortions: No Course 2 Vital Signs: Vital signs: Vital Signs Temperature 98.2 F 11/26/23 16:54 Pulse Rate 79 11/26/23 16:54 Respiratory Rate 14 11/26/23 16:54 Blood Pressure 125/79 11/26/23 16:54 Pulse Oximetry 99 11/26/23 16:54 Oxygen Delivery Me thod Room Air 11/26/23 16:54 MDM - Abdominal Pain Lab Data 11/26/23 14:45 11/26/23 14:45 Labs/Radiology: Radiology Impressions Obstetrics Ultrasound 11/26/23 14:11 IMPRESSION: Live intrauterine gestation of 8 weeks 2 days age. Laboratory Results WBC 6.77 10^3/uL (3.29-11.43) 11/26/23 14:45 RBC 4.45 10^6/uL (3.85-5.65) 11/26/23 14:45 Hgb 12.60 g/dL (11.27-16.99) 11/26/23 14:45 Hct 38.1 % (36-47) 11/26/23 14:45 MCV 85.6 fl (85-98) 11/26/23 14:45 MCH 28.3 pg (27-33) 11/26/23 14:45 MCHC 33.1 g/dL (30-55) 11/26/23 14:45 RDW 13.3 % (12.1-15.1) 11/26/23 14:45 Plt Count 278 10^3/cmm (157-399) 11/26/23 14:45 MPV 8.9 fL (7.4-10.4) 11/26/23 14:45 Neut % (Auto) 66.7 % 11/26/23 14:45 Lymph % (Auto) 26.4 % 11/26/23 14:45 [place] % (Auto) 5.3 % 11/26/23 14:45 Eos % (Auto) 0.9 % 11/26/23 14:45 Baso % (Auto) 0.6 % 11/26/23 14:45 Neut # (Auto) 4.51 10^3/uL (1.8-7.7) 11/26/23 14:45 Lymph # (Auto) 1.8 10^3/uL (0.8-4.8) 11/26/23 14:45 [place] # (Auto) 0.4 10^3/uL (0.2-0.9) 11/26/23 14:45 Eos # (Auto) 0.1 10^3/uL (0.0-0.8) 11/26/23 14:45 Baso # (Auto) 0.0 10^3/uL (0.0-0.1) 11/26/23 14:45 Nucleated RBC % (auto) 0 % 11/26/23 14:45 Nucleated RBCs # 0.0 /100WBC 11/26/23 14:45 Sodium 135 mmol/L (136-145) L 11/26/23 14:45 Potassium 3.7 mmol/L (3.5-5.1) 11/26/23 14:45 Chloride 100 mmol/L (98-107) 11/26/23 14:45 Carbon Dioxide 23 mmol/L (22-29) 11/26/23 14:45 Anion Gap 15.7 (5-19) 11/26/23 14:45 BUN 6 mg/dL (6-20) 11/26/23 14:45 Creatinine 0.5 mg/dL (0.5-0.9) 11/26/23 14:45 GFR Calculation 140.4 mL/min (90-130) H 11/26/23 14:45 Glucose 81 mg/dL (65-115) 11/26/23 14:45 Calculated Osmolality 277 mOsm/kg (285-295) L 11/26/23 14:45 Calcium 9.4 mg/dL (8.5-10.5) 11/26/23 14:45 Total Bilirubin 0.7 mg/dL (0.15-1.2) 11/26/23 14:45 AST 15 U/L (0-32) 11/26/23 14:45 ALT 16 U/L (0-33) 11/26/23 14:45 Alkaline Phosphatase 65 U/L (35-105) 11/26/23 14:45 Total Protein 7.4 g/dL (6.6-8.7) 11/26/23 14:45 Albumin 3.9 g/dL (3.5-5.2) 11/26/23 14:45 Globulin 3.5 g/dL (1.3-4.6) 11/26/23 14:45 Lipase 33 U/L (13-60) 11/26/23 14:45 Ser , Semi-Qnt 08453.00 mIU/mL 11/26/23 14:45 Urine Color Yellow (Yellow) 11/26/23 16:40 Urine Appearance Clear (CLEAR) 11/26/23 16:40 Urine pH 5 (5-7) 11/26/23 16:40 Ur Specific [place] 1.025 (1.005-1.030) 11/26/23 16:40 Urine Protein Neg (Negative) 11/26/23 16:40 Urine Glucose (UA) Norm (Normal) 11/26/23 16:40 Urine Ketones Negative (Negative) 11/26/23 16:40 Urine Blood Neg (Negative) 11/26/23 16:40 Urine Nitrate Negative (Negative) 11/26/23 16:40 Urine Bilirubin Neg (Negative) 11/26/23 16:40 Urine Urobilinogen Norm mg/dL (Negative) 11/26/23 16:40 Ur Leukocyte Esterase Negative (Negative) 11/26/23 16:40 Discharge Plan Discharge Patient Disposition: Home Clinical Impression: Abdominal pain during , Intrauterine Condition: Stable Prescriptions: No Action metoclopramide HCl [Reglan] 5 mg tablet 5 mg PO DAILY Qty: 30 0RF hydrocortisone [Cortisone (hydrocortisone)] 1 % cream 1 applic topical TID PRN (Reason: skin irritation) Qty: 28.35 0RF Discharge Orders: Discharge ED (Routine); Ordered 11/26/23 Ordered By: Rashaun Pathak Referrals: Gela Lagos MD [Primary Care Provider] - Patient Instructions: Abdominal Pain (ED), Opioid Safety, Pain Management Activity Restrictions/Additional Instructions: As we discussed your ultrasound today showed a live intrauterine with a date of approximately 8 weeks and 2 days. Your vital signs and blood work here overall unremarkable. Please follow-up with your OTOLARYNGOLOGY NURSE on December 09 as planned Please return to the emergency department for new concerning or worsening symptoms Coding Level of Care Code ED Early Childhood Associate Teacher for Chg Fwd Documented by User: LILIAN Sampson 11/26/23 18:34 HPI - Abdominal Pain 2 General: Chief Complaint: Abdominal Pain Stated Complaint: unknow length, abd pain Time Seen by Provider: 11/26/23 16:29 PFSH ED 2 PFSH: Medical History History of gestational diabetes mellitus (GDM) GDM in first . History of kidney stones Blood type A- Surgical History History of section, low transverse (02/29/20) Due to failure to progress, labor x17 hours, [place], [place], Dr. De Jesus. Female infant weighing 10# 6 OZ. S/P tonsillectomy (~1998) S/P cholecystectomy (~05/2013) Laparoscopic. Family History Family/Other Diabetes Paternal uncle, Father's brothers and sisters (multiple ones have it) Patient denies medical problems Breast, cervical, uterine, ovarian, colon cancer, DVT/PE Grandmother Hyperlipidemia Maternal High cholesterol Diabetes Grandfather Prostate cancer Paternal Social History Second hand smoke exposure: No Alcohol intake: never Substance/Drug Use: never Physical Exam 2 Const: COMMON NORMALS: no acute distress, patient oriented x3 and alert G ENERAL APPEARANCE: cooperative ORIENTATION/CONSCIOUSNESS: Yes awake, Yes oriented to person, Yes oriented to place and Yes oriented to time Neck/C-Spine: COMMON NORMALS: full ROM GENERAL: Yes normal visual inspection Lymph: LYMPHATIC: no lymphadenopathy noted Chest: COMMONS NORMALS: normal inspection of the chest Breast/axilla inspection: Yes no chest deformity, asymmetry, normal contours, no nodules, masses, tenderness Resp: COMMON NORMALS: normal respiratory effort, No retractions, No use of accessory muscles and clear to auscultation bilaterally EFFORT & INSPECTION: Yes able to speak in complete sentences and Yes symmetric chest movement A USCULTATION: clear to auscultation bilaterally Cardio: COMMON NORMALS: regular rate, regular rhythm and Peripheral pulses 2+ throughout RATE: regular rate RHYTHM: regular rhythm PERIPHERAL PULSES: Peripheral pulses 2+ throughout GI: COMMON NORMALS: Normal to inspection, nondistended, normoactive bowel sounds present, Soft to palpation, non-tender and No hepatosplenomegaly present INSPECTION: Yes normal to inspection AUSCULTATION: Yes normoactive bowel sounds PALPATION: Yes Soft to palpation and Yes No hepatosplenomegaly present RECTAL EXAM: deferred OTHER: Describes diffuse abdominal burning. Prior cholecystectomy Extremity: COMMON NORMALS: normal to inspection GENERAL: Yes normal exam except as noted Neuro: COMMON NORMALS: patient oriented x3 SENSORIUM/ORIENTATION: Yes alert, Yes oriented to person, Yes oriented to place and Yes oriented to time CRANIAL NERVES: Yes CN normal except as noted Psych: COMMON NORMALS: mental status grossly normal, Normal thought process present, cooperative, activity/motor behavior normal, denies homicidal ideation and denies suicidal ideation THOUGHT PROCESS: Normal thought process present Skin: COMMON NORMALS: no rashes or lesions noted, no wounds and turgor normal GENERAL SKIN EXAM: no rashes or lesions noted and turgor normal Course 2 Vital Signs: Vital signs: Vital Signs Temperature 98.2 F 11/26/23 16:54 Pulse Rate 79 11/26/23 16:54 Respiratory Rate 14 11/26/23 16:54 Blood Pressure 125/79 11/26/23 16:54 Pulse Oximetry 99 11/26/23 16:54 Oxygen Delivery Me thod Room Air 11/26/23 16:54 MDM - Abdominal Pain Medical Decision Making Assumed care at 1700 patient evaluated in the emergency department today for concerns of abdominal burning. Is approximately 2 months and has not had any diagnostic imaging. Patient has follow-up with her OTOLARYNGOLOGY NURSE on 09 December. Here in the emergency department she underwent laboratory and diagnostic evaluation. ultrasound reveals 8-week 2-day intrauterine . Negative urinalysis and CBC. She does appear to be a little dry and is tolerating p.o. so she will be encouraged to increase her p.o. intake. Patient is to keep her OB appointment on At that appointment they can definitely discuss her abdominal burning sensation that she has had for several weeks now. Patient is agreeable all questions answered Lab Data 11/26/23 14:45 11/26/23 14:45 Labs/Radiology: Radiology Impressions Obstetrics Ultrasound 11/26/23 14:11 IMPRESSION: Live intrauterine gestation of 8 weeks 2 days age. Laboratory Results WBC 6.77 10^3/uL (3.29-11.43) 11/26/23 14:45 RBC 4.45 10^6/uL (3.85-5.65) 11/26/23 14:45 Hgb 12.60 g/dL (11.27-16.99) 11/26/23 14:45 Hct 38.1 % (36-47) 11/26/23 14:45 MCV 85.6 fl (85-98) 11/26/23 14:45 MCH 28.3 pg (27-33) 11/26/23 14:45 MCHC 33.1 g/dL (30-55) 11/26/23 14:45 RDW 13.3 % (12.1-15.1) 11/26/23 14:45 Plt Count 278 10^3/cmm (157-399) 11/26/23 14:45 MPV 8.9 fL (7.4-10.4) 11/26/23 14:45 Neut % (Auto) 66.7 % 11/26/23 14:45 Lymph % (Auto) 26.4 % 11/26/23 14:45 [place] % (Auto) 5.3 % 11/26/23 14:45 Eos % (Auto) 0.9 % 11/26/23 14:45 Baso % (Auto) 0.6 % 11/26/23 14:45 Neut # (Auto) 4.51 10^3/uL (1.8-7.7) 11/26/23 14:45 Lymph # (Auto) 1.8 10^3/uL (0.8-4.8) 11/26/23 14:45 [place] # (Auto) 0.4 10^3/uL (0.2-0.9) 11/26/23 14:45 Eos # (Auto) 0.1 10^3/uL (0.0-0.8) 11/26/23 14:45 Baso # (Auto) 0.0 10^3/uL (0.0-0.1) 11/26/23 14:45 Nucleated RBC % (auto) 0 % 11/26/23 14:45 Nucleated RBCs # 0.0 /100WBC 11/26/23 14:45 Sodium 135 mmol/L (136-145) L 11/26/23 14:45 Potassium 3.7 mmol/L (3.5-5.1) 11/26/23 14:45 Chloride 100 mmol/L (98-107) 11/26/23 14:45 Carbon Dioxide 23 mmol/L (22-29) 11/26/23 14:45 Anion Gap 15.7 (5-19) 11/26/23 14:45 BUN 6 mg/dL (6-20) 11/26/23 14:45 Creatinine 0.5 mg/dL (0.5-0.9) 11/26/23 14:45 GFR Calculation 140.4 mL/min (90-130) H 11/26/23 14:45 Glucose 81 mg/dL (65-115) 11/26/23 14:45 Calculated Osmolality 277 mOsm/kg (285-295) L 11/26/23 14:45 Calcium 9.4 mg/dL (8.5-10.5) 11/26/23 14:45 Total Bilirubin 0.7 mg/dL (0.15-1.2) 11/26/23 14:45 AST 15 U/L (0-32) 11/26/23 14:45 ALT 16 U/L (0-33) 11/26/23 14:45 Alkaline Phosphatase 65 U/L (35-105) 11/26/23 14:45 Total Protein 7.4 g/dL (6.6-8.7) 11/26/23 14:45 Albumin 3.9 g/dL (3.5-5.2) 11/26/23 14:45 Globulin 3.5 g/dL (1.3-4.6) 11/26/23 14:45 Lipase 33 U/L (13-60) 11/26/23 14:45 Ser , Semi-Qnt 32485.00 mIU/mL 11/26/23 14:45 Urine Color Yellow (Yellow) 11/26/23 16:40 Urine Appearance Clear (CLEAR) 11/26/23 16:40 Urine pH 5 (5-7) 11/26/23 16:40 Ur Specific [place] 1.025 (1.005-1.030) 11/26/23 16:40 Urine Protein Neg (Negative) 11/26/23 16:40 Urine Glucose (UA) Norm (Normal) 11/26/23 16:40 Urine Ketones Negative (Negative) 11/26/23 16:40 Urine Blood Neg (Negative) 11/26/23 16:40 Urine Nitrate Negative (Negative) 11/26/23 16:40 Urine Bilirubin Neg (Negative) 11/26/23 16:40 Urine Urobilinogen Norm mg/dL (Negative) 11/26/23 16:40 Ur Leukocyte Esterase Negative (Negative) 11/26/23 16:40 All radiology interpretation(s) finalized by discharge Discharge Plan Discharge Patient Disposition: Home Clinical Impression: Abdominal pain during , Intrauterine Condition: Stable Prescriptions: No Action metoclopramide HCl [Reglan] 5 mg tablet 5 mg PO DAILY Qty: 30 0RF hydrocortisone [Cortisone (hydrocortisone)] 1 % cream 1 applic topical TID PRN (Reason: skin irritation) Qty: 28.35 0RF Discharge Orders: Discharge ED (Routine); Ordered 11/26/23 Ordered By: Rashaun Pathak Referrals: Gela Lagos MD [Primary Care Provider] - Patient Instructions: Abdominal Pain (ED), Opioid Safety, Pain Management Activity Restrictions/Additional Instructions: As we discussed your ultrasound today showed a live intrauterine with a date of approximately 8 weeks and 2 days. Your vital signs and blood work here overall unremarkable. Please follow-up with your OTOLARYNGOLOGY NURSE on December 09 as planned Please return to the emergency department for new concerning or worsening symptoms Coding Level of Care Code ED Early Childhood Associate Teacher for Jocelyne Middleton
[2023-11-26 16:54] VITALS: BP 125/79; PULSE 79; RESP 14; TEMP 36.8; O2SAT 99
[2023-11-26 17:02] LABS: Add Urine Microscopic? NO; Charge for UA Resulting for Rev
[2023-11-26 17:16] LABS: Urine Appearance Clear (CLEAR); Urine Color Yellow (Yellow)
[2023-11-26 17:17] LABS: Bilirubin Urine Neg (Negative); Blood Urine Neg (Negative); Glucose Urine UA Norm (Normal); Ketones Urine Negative (Negative); Leukocyte Esterase Urine Negative (Negative); Nitrate Urine Negative (Negative); Protein Urine Neg (Negative); Specific Gravity, Urine 1.025 (1.005-1.030); Urobilinogen Urine Norm (Negative); pH Urine 5 (5-7)
[2023-11-26 18:35] VITALS: BP 125/79; PULSE 79; RESP 14; TEMP 36.8; O2SAT 99
== END 2023-11-26 18:42 | disposition home or self-care (01) ==
PROVIDERS: Emergency Provider Physician Assistant; PCP Family Medicine
DX: O26.891 Other specified pregnancy related conditions, first trimester (principal); R10.9 Unspecified abdominal pain; Z3A.08 8 weeks gestation of pregnancy
CPT/HCPCS: 36415; 76801; 76817; 80053; 81003; 83690; 84702; 85025; 99284

== ENCOUNTER 2023-12-13 10:47 | Outpatient (CLI) | payer MEDICAID, SELFPAY ==
[2023-12-13 12:46] LABS: Basophils % 0.5 %; Eosinophils # 0.1 10^3/uL (0.0-0.8); Eosinophils % 0.9 %; Hematocrit 38.2 % (36-47); Lymphocytes # 2.1 10^3/uL (0.8-4.8); Lymphocytes % 31.9 %; Mean Corpuscular HGB Conc 33.8 g/dL (30-55); Mean Corpuscular Hemoglobin 28.4 pg (27-33); Mean Corpuscular Volume 84.1 fl (85-98); Mean Platelet Volume 8.5 fL (7.4-10.4); Monocytes # 0.4 10^3/uL (0.2-0.9); Monocytes % 5.6 %; Neutrophils # 3.93 10^3/uL (1.8-7.7); Neutrophils % 60.8 %; Nucleated Red Blood Cells % 0 %; Platelet Count 231 10^3/cmm (157-399); Red Blood Count 4.54 10^6/uL (3.85-5.65); Red Cell Distribution Width 13.6 % (12.1-15.1); White Blood Count 6.46 10^3/uL (3.29-11.43)
[2023-12-13 13:20] LABS: Estmated Average Glucose 105; Hemoglobin A1C 5.3 % (4.0-6.0)
[2023-12-13 13:25] LABS: Free T4 Free Thyroxine 1.15 ng/dL (0.82-1.77); Hepatitis B Surface Antigen Non-Reactive (Nonreactive); Hepatitis C Virus Antibody Non-Reactive (Nonreactive); Rubella IgG 338.1 IU/mL (0.0-10.0); T3 Free 2.9 PG/ML (2.0-4.4); Thyroid Stimulating Hormone 1.71 uIU/mL (0.27-4.20)
== END 2023-12-13 10:48 | disposition home or self-care (01) ==
LOC: LAB 10:51
PROVIDERS: PCP Family Medicine; Visit Provider Nurse Practitioner Women's Health
DX: Z34.90 Encounter for supervision of normal pregnancy, unspecified, unspecified trimester (principal); Z86.32 Personal history of gestational diabetes
CPT/HCPCS: 80307; 83036; 84315; 84439; 84443; 84481; 85025; 86592; 86762; 86803; 86850; 86900; 87086; 87340; 87806

== ENCOUNTER → 2023-12-30 07:51 | Outpatient (BNVA) | payer MEDICAID, SELFPAY | PROVIDERS: PCP Family Medicine; Visit Provider Obstetrics & Gynecology | DX: O26.891 Other specified pregnancy related conditions, first trimester (principal); Z3A.10 10 weeks gestation of pregnancy | CPT/HCPCS: 82950; 84315; 87624 ==

== ENCOUNTER → 2024-01-03 08:15 | Outpatient (BNVA) | payer MEDICAID, SELFPAY | PROVIDERS: PCP Family Medicine; Visit Provider Obstetrics & Gynecology | DX: Z86.32 Personal history of gestational diabetes (principal) | CPT/HCPCS: 82951; 82952 ==

== ENCOUNTER → 2024-01-20 11:02 | Outpatient (BNVA) | payer MEDICAID, SELFPAY | PROVIDERS: PCP Family Medicine; Visit Provider Nurse Practitioner Women's Health | DX: O26.891 Other specified pregnancy related conditions, first trimester (principal); Z3A.10 10 weeks gestation of pregnancy | CPT/HCPCS: 82105; 84315 ==

== ENCOUNTER → 2024-02-10 15:57 | Outpatient (BNVA) | payer MEDICAID, SELFPAY | PROVIDERS: PCP Family Medicine; Visit Provider Emergency Medicine | DX: J02.9 Acute pharyngitis, unspecified (principal) | CPT/HCPCS: 87071; 87880 ==

== ENCOUNTER → 2024-02-17 14:17 | Outpatient (BNVA) | payer MEDICAID, SELFPAY | PROVIDERS: PCP Family Medicine; Visit Provider Obstetrics & Gynecology | DX: O26.892 Other specified pregnancy related conditions, second trimester (principal); Z3A.20 20 weeks gestation of pregnancy | CPT/HCPCS: 76805; 76817 ==

== ENCOUNTER 2024-02-17 16:20 | Outpatient (CLI) | payer MEDICAID, SELFPAY ==
[2024-02-17] VITALS (13 sets, daily range): BP systolic 120–157; BP diastolic 65–83; PULSE 77–96; RESP 18; BMI 34.5
--- NOTE | 2024-02-17 16:50 | PM.OBGYHP ---
Providers/Chief Complaint Admitting Physician: Tommy Urbina MD Primary PHOTO LAB SPECIALIST: Tommy Urbina MD Primary Care Provider: Gela Lagos MD Chief Complaint: labor HPI PHOTO LAB SPECIALIST History of Present Illness Maia Milligan is a 33 year old female EDC July 05, 2024 at 20 w 1 d no c/o no pain, pressure, bleeding, discharge had scheduled OB anatomy scan today when it was noted her cervix was dilated h/o previous at term Present Details : 2 Para: 1 Medications/Allergies Home Medications Medication Instructions Recorded Confirmed Last Taken Type vits no.124-ferrous fum 1 tab PO DAILY 02/17/24 02/17/24 02/16/24 History 27 mg iron-folic acid 800 mcg tablet ( Vitamin) Allergies Allergy/AdvReac Type Severity Reaction Status Date / Time codeine AdvReac Mild vomiting Verified 02/17/24 14:59 [From [employer] with Codeine] PFSH PHOTO LAB SPECIALIST PFSH: Medical History History of gestational diabetes mellitus (GDM) GDM in first . History of kidney stones Blood type A- Surgical History History of section, low transverse (02/29/20) Due to failure to progress, labor x17 hours, [place], [place], Dr. De Jesus. Female infant weighing 10# 6 OZ. S/P tonsillectomy (~1998) S/P cholecystectomy (~05/2013) Laparoscopic. Family History Family/Other Diabetes Paternal uncle, Father's brothers and sisters (multiple ones have it) Patient denies medical problems Breast, cervical, uterine, ovarian, colon cancer, DVT/PE Grandmother Hyperlipidemia Maternal High cholesterol Diabetes Grandfather Prostate cancer Paternal Social History Second hand smoke exposure: No Alcohol intake: never Substance/Drug Use: never Other Female Reproductive History: Hx Age of Menarche: 9 Personal Safety: Do you feel safe at home: Yes Victim of physical abuse: No Victim of emotional abuse: No Victim of sexual abuse: No Would you like help information on resources?: No History History History 2 Term 1 0 Miscarriages/Ectopic 0 Living Children 1 Past Pregnancies Del. Date GA/Weeks Outcome Route Wt Inf Gender Labor Lgth Comp. Anesthesia Location 02/29/20 live - full term 10 lb 6 oz Female 17 hours Other Delivery Date: 02/29/20 Last Updated by: Hetal Palacios LPN Failure to progress Care TRISH Calculator Estimated Delivery Date Method Current WG Current Estimate 07/05/24 Manual 20w 1d Vitals/I&O/Wt Last Vital Signs Pulse 90 02/17/24 16:33 BP 147/82 02/17/24 16:33 Weight last 48 hrs Weight 195 lb Physical Exam Narrative: Weight 194 lbs; 5'2 VS normal Comfortable, awake, alert Lungs: clear Cor: RRR Abd: soft, nontender Vulva: normal Vagina: normal Cervix: visually approximately 2 cm dilated with bulging bag of hoover at cervical os but not in vagina Results Labs OB ([facility]): Obstetrics US 02/17/24 Obstetrics US/Biophysical Profile 02/08/20 Blood Type A Negative 12/13/23 Antibody Screen Negative 12/13/23 Hct 38.2 % (36-47) 12/13/23 Hgb 12.90 g/dL (11.27-16.99) 12/13/23 Rho(D) Type Negative 12/13/23 Plt Count 231 10^3/cmm (157-399) 12/13/23 Hep Bs Antigen Non-reactive (Nonreactive) 12/13/23 Hepatitis C Antibody Non-reactive (Nonreactive) 12/13/23 Rubella IgG Antibody 338.1 IU/mL (0.0-10.0) H 12/13/23 RPR Nonreactive (Nonreactive) 12/13/23 HIV 1&2 Ab & HIV 1 Ag Non-reactive (Non-Reactiv) 12/13/23 TSH 1.71 uIU/mL (0.27-4.20) 12/13/23 Free T4 1.15 ng/dL (0.82-1.77) 12/13/23 Cystic Fibrosis Screen Pending 12/13/23 Glucose 1 Hr 50 gm 195 mg/dL (85-140) H 12/10/19 Gest Glucose Tolerance mg/dL 01/03/24 Hemoglobin A1c 5.3 % (4.0-6.0) 12/13/23 Uric Acid 4.5 mg/dL (2.4-5.7) 02/29/20 Ser , Semi-Qnt 21192.00 mIU/mL 11/26/23 HCG, Qual Positive (Negative) H 11/19/23 Urine Opiates Screen Negative ng/mL (Negative) 12/13/23 Ur Barbiturates Screen Negative ng/mL (Negative) 12/13/23 Ur Phencyclidine Scrn Negative ng/mL (Negative) 12/13/23 Ur Amphetamines Screen Negative ng/mL (Negative) 12/13/23 U Benzodiazepines Scrn Negative ng/mL (Negative) 12/13/23 Urine Cocaine Screen Negative ng/mL (Negative) 12/13/23 U Marijuana (THC) Screen Negative ng/mL (Negative) 12/13/23 Micro Urine Specimen 12/13/23 Pap Smear Interpret See note 12/30/23 Prolactin 4.96 ng/mL (4.8-23.3) 08/03/20 A&P Assessment and plan (1) : 20 w 1 d Qualifiers: Weeks of gestation: 10 weeks Qualified Code(s): Z3A.10 - 10 weeks gestation of (2) Incompetent cervix: [facility] mg IV x one prior to transfer by ambulance (3) History of section, low transverse: Attestations Medical Necessity Statement*: patient at 20 weeks with incompetent cervix, plan transfer to [facility] Coding Level of Care Code Acute Code for Chg Fwd Diagnoses 10 weeks gestation of Z3A.10 Weeks of gestation: 10 weeks Incompetent cervix N88.3 History of section, low transverse Z98.891 Time Spent (min) 60
[2024-02-17] MEDS: lactated ringers 1,000 ML 125 ML IV (16:57)
[2024-02-17] MEDS: ketorolac 30 mg/mL INJ IVP (16:57)
== END 2024-02-17 19:28 | disposition intermediate care facility (04) ==
LOC: OPOB 16:24 → OBGYN 16:25
PROVIDERS: PCP Family Medicine; Visit Provider Obstetrics & Gynecology
DX: O34.32 Maternal care for cervical incompetence, second trimester (principal); Z3A.20 20 weeks gestation of pregnancy; Z98.891 History of uterine scar from previous surgery
CPT/HCPCS: 96374; 99211; J1885; J7120

== ENCOUNTER 2024-03-17 10:37 | Outpatient (CLI) | payer MEDICAID, SELFPAY ==
[2024-03-17] VITALS (22 sets, daily range): BP systolic 103–152; BP diastolic 56–84; PULSE 84–101; BMI 36.6
[2024-03-17 11:46] LABS: Bilirubin Urine Neg (Negative); Blood Urine Neg (Negative); Glucose Urine UA Norm (Normal); Ketones Urine 1+ (Negative); Leukocyte Esterase Urine Negative (Negative); Nitrate Urine Negative (Negative); Protein Urine Neg (Negative); Specific Gravity, Urine 1.015 (1.005-1.030); Urine Appearance Clear (CLEAR); Urine Color Yellow (Yellow); Urobilinogen Urine Norm (Negative); pH Urine 5 (5-7)
[2024-03-17 11:50] LABS: Add Urine Culture? No; Bacteria Urine TRACE /hpf; Mucus Urine TRACE /hpf; RBC Urine 0-4 /hpf (0-2); Renal Epithelial Cells Urine 0-4 /hpf; Squamous Epithelial Cell Urine 0-4 /hpf (0-5); WBC Urine 0-4 /hpf (0-5)
[2024-03-17] MEDS: dextrose 5%-lactated ringers 1,000 ML 75 ML IV (15:19)
[2024-03-17] MEDS: magnesium sulfate premix 4 GM/100 ML PREMIX IV (15:21)
[2024-03-17] MEDS: magnesium sulfate premix 20 GM/500 ML BAG IV (15:22)
--- NOTE | 2024-03-17 16:40 | PC.NURSE ---
Juan Salmeron transport on unit at this time for transport to [facility]. Report given by senior medical writer and care handed over at this time.
== END 2024-03-17 17:00 | disposition intermediate care facility (04) ==
LOC: OPOB 10:39 → OBGYN 10:40
PROVIDERS: PCP Family Medicine; Visit Provider Obstetrics & Gynecology
DX: O26.899 Other specified pregnancy related conditions, unspecified trimester (principal); Z3A.00 Weeks of gestation of pregnancy not specified; R10.9 Unspecified abdominal pain
CPT/HCPCS: 51702; 81001; 99211; J3475; J7121

== ENCOUNTER 2024-04-13 14:13 | Outpatient (CLI) | payer MEDICAID, SELFPAY ==
[2024-04-13 14:21] VITALS: BMI 35.6
[2024-04-13 14:34] VITALS: BP 130/79; PULSE 107
[2024-04-13] MEDS: betamethasone susp 6 mg/mL 1 mL (per mL) 12 MG IM (14:34)
[2024-04-13 14:40] VITALS: BP 130/79; PULSE 107
== END 2024-04-13 14:40 | disposition home or self-care (01) ==
LOC: OPOB 14:17 → OBGYN 14:18
PROVIDERS: PCP Family Medicine; Visit Provider Obstetrics & Gynecology
DX: O26.899 Other specified pregnancy related conditions, unspecified trimester (principal)
CPT/HCPCS: 82950; 84315; 96372; J0702

== ENCOUNTER 2024-04-14 14:20 | Outpatient (CLI) | payer MEDICAID, SELFPAY ==
[2024-04-14] MEDS: betamethasone susp 6 mg/mL 1 mL (per mL) 12 MG IM (14:34)
== END 2024-04-14 14:40 | disposition home or self-care (01) ==
LOC: OPOB 14:25 → OBGYN 14:25
PROVIDERS: PCP Family Medicine; Visit Provider Obstetrics & Gynecology
DX: O26.899 Other specified pregnancy related conditions, unspecified trimester (principal); Z3A.00 Weeks of gestation of pregnancy not specified
CPT/HCPCS: 96372; 99211; J0702

== ENCOUNTER 2024-05-28 18:31 | Outpatient (CLI) | payer MEDICAID, SELFPAY ==
[2024-05-28] VITALS (14 sets, daily range): BP systolic 120–134; BP diastolic 73–87; PULSE 90–99; BMI 38.7
[2024-05-28] MEDS: NIFEdipine ER (24 hr) 30 mg Tablet PO (20:50)
[2024-05-28] MEDS: acetaminophen 500 mg Tablet 1000 MG PO (22:46)
[2024-05-28] MEDS: magnesium sulfate premix 4 GM/100 ML PREMIX IV (23:50)
[2024-05-28] MEDS: dextrose 5%-lactated ringers 1,000 ML 125 ML IV (23:50)
[2024-05-29 00:31] VITALS: BP 126/68; PULSE 102
[2024-05-29] MEDS: magnesium sulfate premix 20 GM/500 ML BAG IV (00:34)
--- NOTE | 2024-05-29 00:34 | PM.OBGYHP ---
Providers/Chief Complaint Admitting Physician: Tommy Urbina MD Primary SUPERVISOR FILM PROCESSING: Tommy Urbina MD Primary Care Provider: Gela Lagos MD Chief Complaint: Elevated BP HPI SUPERVISOR FILM PROCESSING History of Present Illness 33 y.o. EDC July 05, 2024 At 34 w 4 d s/p cervical cerclage at [facility], February 18, 2024, at 20 w, for incompetent cervix cervix was dilated to 2 cm, effaced to 90%, with bulging bag of hoover patient has been managed at home with bedrest and limited activity has been doing well presents to L&D c/o worsening uterine contractions no bleeding, fluid leakage no fever, chills + active movements Received two doses of Celestone 12 mg IM at 28 weeks 1-h glucola done 04-13-24 was 205 Patient started on accuchecks FBS and some 1-h postprandial values have been elevated Patient was started on insulin regimen POBHx: , OZHC; GDM, diet-controlled Present Details : 2 Para: 1 Medications/Allergies Home Medications Medication Instructions Recorded Confirmed Last Taken Type vits no.124-ferrous fum 1 tab PO DAILY 02/17/24 05/28/24 1 Day Ago History 27 mg iron-folic acid 800 mcg ~05/27/24 tablet ( Vitamin) blood sugar diagnostic (Accu-Chek #100 ea 04/22/24 05/13/24 Unknown Rx Guide test strips) blood-glucose meter (Accu-Chek #1 ea 04/22/24 05/13/24 Unknown Rx Guide Glucose Meter) lancets 31 gauge (Comfort Touch #100 ea 04/22/24 05/13/24 Unknown Rx Ultra Thin Lancets) insulin NPH-regular 70-30 U-100 10 unit (0.1 mL) SUBCUT QAM #15 mL 05/15/24 05/28/24 1 Day Ago Rx insulin 100 unit/mL subcutaneous ~05/27/24 pen (Novolin 70-30 FlexPen U-100 Insulin) Allergies Allergy/AdvReac Type Severity Reaction Status Date / Time codeine AdvReac Mild vomiting Verified 05/28/24 19:25 [From [employer] with Codeine] PFSH SUPERVISOR FILM PROCESSING PFSH: Medical History History of gestational diabetes mellitus (GDM) GDM in first . History of kidney stones Blood type A- Surgical History History of section, low transverse (02/29/20) Due to failure to progress, labor x17 hours, [place], [place], Dr. De Jesus. Female weighing 10# 6 OZ. S/P tonsillectomy (~1998) S/P cholecystectomy (~05/2013) Laparoscopic. Family History Family/Other Diabetes Paternal uncle, Father's brothers and sisters (multiple ones have it) Patient denies medical problems Breast, cervical, uterine, ovarian, colon cancer, DVT/PE Grandmother Hyperlipidemia Maternal High cholesterol Diabetes Grandfather Prostate cancer Paternal Social History Second hand smoke exposure: No Alcohol intake: never Substance/Drug Use: never Other Female Reproductive History: Hx Age of Menarche: 9 Personal Safety: Do you feel safe at home: Yes Victim of physical abuse: No Victim of emotional abuse: No Victim of sexual abuse: No Would you like help information on resources?: No History History History 2 Term 1 0 Miscarriages/Ectopic 0 Living Children 1 Past Pregnancies Del. Date GA/Weeks Outcome Route Wt Inf Gender Labor Lgth Comp. Anesthesia Location 02/29/20 live - full term 10 lb 6 oz Female 17 hours Other Delivery Date: 02/29/20 Last Updated by: Hetal Palacios LPN Failure to progress Care TRISH Calculator Estimated Delivery Date Method Current WG Current Estimate 07/05/24 Manual 34w 5d Vitals/I&O/Wt Last Vital Signs Pulse 102 H 05/29/24 00:31 BP 126/68 05/29/24 00:31 05/28/24 05/28/24 05/29/24 14:59 22:59 06:59 Intake Total 50 / 50 Balance 50 / 50 Weight last 48 hrs Weight 212 lb Physical Exam Narrative: Weight 212 lbs; 5?2? VS normal General Comfortable, awake, alert Abd: soft, nontender FH 34 cm Ext: no swelling, redness External monitor: + UCs, one q 5-10 minutes heart tracing good variability, + accelerations Urinary Catheter Management: Mojica Latex: Cath Placed During This Visit: yes Urinary Catheter Date of Insertion: 05/29/24 Urinary Catheter Time of Insertion: 00:20 Results Labs OB ([facility]): Obstetrics US 02/17/24 Obstetrics US/Biophysical Profile 02/08/20 Blood Type A Negative 12/13/23 Antibody Screen Negative 12/13/23 Hct 38.2 % (36-47) 12/13/23 Hgb 12.90 g/dL (11.27-16.99) 12/13/23 Rho(D) Type Negative 12/13/23 Plt Count 231 10^3/cmm (157-399) 12/13/23 Hep Bs Antigen Non-reactive (Nonreactive) 12/13/23 Hepatitis C Antibody Non-reactive (Nonreactive) 12/13/23 Rubella IgG Antibody 338.1 IU/mL (0.0-10.0) H 12/13/23 RPR Nonreactive (Nonreactive) 12/13/23 HIV 1&2 Ab & HIV 1 Ag Non-reactive (Non-Reactiv) 12/13/23 TSH 1.71 uIU/mL (0.27-4.20) 12/13/23 Free T4 1.15 ng/dL (0.82-1.77) 12/13/23 Cystic Fibrosis Screen Pending 12/13/23 Glucose 1 Hr 50 gm 205 mg/dL (85-140) H 04/13/24 Gest Glucose Tolerance mg/dL 01/03/24 Hemoglobin A1c 5.3 % (4.0-6.0) 12/13/23 Uric Acid 4.5 mg/dL (2.4-5.7) 02/29/20 Ser , Semi-Qnt 11612.00 mIU/mL 11/26/23 HCG, Qual Positive (Negative) H 11/19/23 Urine Opiates Screen Negative ng/mL (Negative) 12/13/23 Ur Barbiturates Screen Negative ng/mL (Negative) 12/13/23 Ur Phencyclidine Scrn Negative ng/mL (Negative) 12/13/23 Ur Amphetamines Screen Negative ng/mL (Negative) 12/13/23 U Benzodiazepines Scrn Negative ng/mL (Negative) 12/13/23 Urine Cocaine Screen Negative ng/mL (Negative) 12/13/23 U Marijuana (THC) Screen Negative ng/mL (Negative) 12/13/23 Micro Urine Specimen 12/13/23 Pap Smear Interpret See note 12/30/23 Prolactin 4.96 ng/mL (4.8-23.3) 08/03/20 A&P Assessment and plan (1) : 34 w 4 d Has cerclage in place Patient with previous c/o UCs UCs did not decrease with oral Procardia Will start MgSO4 Plan transfer patient to [facility] at [facility] due to prematurity and h/o cerclage Qualifiers: Weeks of gestation: 10 weeks Qualified Code(s): Z3A.10 - 10 weeks gestation of (2) Incompetent cervix: s/p cervical cerclage at [facility], February 18, 2024 for incompetent cervix (3) History of section, low transverse: (4) Gestational diabetes: (5) Rh negative status during : Qualifiers: Trimester: first trimester Qualified Code(s): O26.891 - Other specified related conditions, first trimester; Z67.91 - Unspecified blood type, Rh negative Attestations Medical Necessity Statement*: patient at 34 w 4 d, has cervical cerclage in place, with uterine contractions Coding Level of Care Code Acute Code for Chg Fwd Diagnoses 10 weeks gestation of Z3A.10 Weeks of gestation: 10 weeks Incompetent cervix N88.3 History of section, low transverse Z98.891 Gestational diabetes O24.419 Rh negative status during in first trimester O26.891; Z67.91 Trimester: first trimester Time Spent (min) 60
[2024-05-29 00:40] VITALS: BP 127/74; PULSE 97
--- NOTE | 2024-05-29 00:59 | PC.NURSE ---
Juan Salmeron here to transport pt @ 0040, care assumed and pt transferred off the unit with ambulance personal @ 081
== END 2024-05-29 00:50 | disposition intermediate care facility (04) ==
LOC: OPOB 18:32 → OBGYN 18:32
PROVIDERS: PCP Family Medicine; Visit Provider Obstetrics & Gynecology
DX: O26.891 Other specified pregnancy related conditions, first trimester (principal); Z3A.34 34 weeks gestation of pregnancy; N88.3 Incompetence of cervix uteri; Z98.891 History of uterine scar from previous surgery; O24.419 Gestational diabetes mellitus in pregnancy, unspecified control; Z67.91 Unspecified blood type, Rh negative; O16.9 Unspecified maternal hypertension, unspecified trimester
CPT/HCPCS: 51702; J3475; J7121

== ENCOUNTER 2024-06-19 16:38 | Emergency (ER) | payer MEDICAID, SELFPAY ==
[2024-06-19 16:41] VITALS: BP 146/88; PULSE 78; RESP 15; TEMP 36.8; O2SAT 97
--- NOTE | 2024-06-19 17:05 | ED_ITS ---
HPI - General Adult 2 General: Chief complaint: General Medical Stated complaint: post c section bleeding, feet swelling, fever, STYLES Time Seen by Provider: 06/19/24 16:58 History of Present Illness: 33-year-old female s/p C/S POD #8, prese nts to the ER with complaints of fever headache and incisional pain. She reports a fever at home has not when she presents here. She has some mild discomfort with urination. No flank pain. She is complaining of pain in the left edge of her incision. Associated symptoms: Deny chest pain, dyspnea or rash Review of Systems 2 Const: Denies: fever(s) or chills Card: Denies: chest pain Resp: Denies: dyspnea GI: Denies: abdominal pain : Denies: dysuria, urinary frequency or urinary urgency Musc: Denies: neck pain or back pain Skin/Breast: Denies: rash PFSH ED 2 PFSH: Medical History History of gestational diabetes mellitus (GDM) GDM in first . History of kidney stones Blood type A- Surgical History History of section, low transverse (02/29/20) Due to failure to progress, labor x17 hours, [place], [place], Dr. De Jesus. Female weighing 10# 6 OZ. S/P tonsillectomy (~1998) S/P cholecystectomy (~05/2013) Laparoscopic. Family History Family/Other Diabetes Paternal uncle, Father's brothers and sisters (multiple ones have it) Patient denies medical problems Breast, cervical, uterine, ovarian, colon cancer, DVT/PE Grandmother Hyperlipidemia Maternal High cholesterol Diabetes Grandfather Prostate cancer Paternal Social History Smoking and tobacco/nicotine status: never used tobacco/nicotine Second hand smoke exposure: No Alcohol intake: never Substance/Drug Use: never Female Reproductive History: Para: 0 Spontaneous abortions: No Physical Exam 2 Const: GENERAL APPEARANCE: cooperative ORIENTATION/CONSCIOUSNESS: Yes awake, Yes oriented to person, Yes oriented to place and Yes oriented to time HENMT: COMMON NORMALS: normocephalic, atraumatic and hearing grossly normal bilaterally HEAD & SCALP: normocephalic and atraumatic Resp: COMMON NORMALS: normal respiratory effort, No retractions, No use of accessory muscles and clear to auscultation bilaterally AUSCULTATION: clear to auscultation bilaterally Cardio: COMMON NORMALS: regular rate, regular rhythm and No murmurs present (Cardio) RATE: regular rate RHYTHM: regular rhythm GI: COMMON NORMALS: No hepatosplenomegaly present AUSCULTATION: Yes normoactive bowel sounds PALPATION: Yes Tenderness to palpation present (GI), No Guarding due to palpation present (GI) and Yes No hepatosplenomegaly present OTHER: Tenderness along the incision no drainage from the wound. Slightly indurated on the left edge. No skin induration or redness Extremity: COMMON NORMALS: normal to inspection, capillary refill normal and no calf tenderness GENERAL: Yes edema (Nonpitting lower extremities) Neuro: SENSORIUM/ORIENTATION: Yes oriented to person, Yes oriented to place and Yes oriented to time Skin: COMMON NORMALS: no rashes or lesions noted GENERAL SKIN EXAM: no rashes or lesions noted Course 2 Vital Signs: Vital signs: Vital Signs Temperature 98.3 F 06/19/24 16:41 Pulse Rate 69 06/19/24 19:04 Respiratory Rate 15 06/19/24 16:41 Blood Pressure 146/101 06/19/24 19:04 Pulse Oximetry 98 06/19/24 19:04 Oxygen Delivery Me thod Room Air 06/19/24 18:36 [facility] - General Adult Medical Decision Making Suspect patient may be developing seroma on the left edge of the incision. She is mildly anemic consistent with recent delivery labs are otherwise unremarkable blood pressure is elevated. Recommend continuing the Lasix also start hydralazine 10 mg 3 times daily recheck with her primary care doctor or OB within the next 2 to 3 days return if has further problems. Medical Records I reviewed the patient's medical records. Lab Data I reviewed the patient's lab results. 06/19/24 17:10 06/19/24 17:10 Laboratory Results WBC 7.30 10^3/uL (3.29-11.43) 06/19/24 17:10 RBC 3.52 10^6/uL (3.85-5.65) L 06/19/24 17:10 Hgb 9.90 g/dL (11.27-16.99) L 06/19/24 17:10 Hct 31.1 % (36-47) L 06/19/24 17:10 MCV 88.4 fl (85-98) 06/19/24 17:10 MCH 28.1 pg (27-33) 06/19/24 17:10 MCHC 31.8 g/dL (30-55) 06/19/24 17:10 RDW 14.2 % (12.1-15.1) 06/19/24 17:10 Plt Count 376 10^3/cmm (157-399) 06/19/24 17:10 MPV 8.2 fL (7.4-10.4) 06/19/24 17:10 Neut % (Auto) 70.8 % 06/19/24 17:10 Lymph % (Auto) 21.6 % 06/19/24 17:10 [place] % (Auto) 4.7 % 06/19/24 17:10 Eos % (Auto) 1.5 % 06/19/24 17:10 Baso % (Auto) 0.7 % 06/19/24 17:10 Neut # (Auto) 5.17 10^3/uL (1.8-7.7) 06/19/24 17:10 Lymph # (Auto) 1.6 10^3/uL (0.8-4.8) 06/19/24 17:10 [place] # (Auto) 0.3 10^3/uL (0.2-0.9) 06/19/24 17:10 Eos # (Auto) 0.1 10^3/uL (0.0-0.8) 06/19/24 17:10 Baso # (Auto) 0.1 10^3/uL (0.0-0.1) 06/19/24 17:10 Nucleated RBC % (auto) 0.3 % 06/19/24 17:10 Nucleated RBCs # 0.0 /100WBC 06/19/24 17:10 Sodium 144 mmol/L (136-145) 06/19/24 17:10 Potassium 3.7 mmol/L (3.5-5.1) 06/19/24 17:10 Chloride 105 mmol/L (98-107) 06/19/24 17:10 Carbon Dioxide 25 mmol/L (22-29) 06/19/24 17:10 Anion Gap 17.7 (5-19) 06/19/24 17:10 BUN 7 mg/dL (6-20) 06/19/24 17:10 Creatinine 0.5 mg/dL (0.5-0.9) 06/19/24 17:10 GFR Calculation 140.4 mL/min (90-130) H 06/19/24 17:10 Glucose 94 mg/dL (65-115) 06/19/24 17:10 Calculated Osmolality 296 mOsm/kg (285-295) H 06/19/24 17:10 Calcium 8.6 mg/dL (8.5-10.5) 06/19/24 17:10 Total Bilirubin 0.9 mg/dL (0.15-1.2) 06/19/24 17:10 AST 25 U/L (0-32) 06/19/24 17:10 ALT 16 U/L (0-33) 06/19/24 17:10 Alkaline Phosphatase 120 U/L (35-105) H 06/19/24 17:10 Total Protein 6.7 g/dL (6.6-8.7) 06/19/24 17:10 Albumin 3.4 g/dL (3.5-5.2) L 06/19/24 17:10 Globulin 3.3 g/dL (1.3-4.6) 06/19/24 17:10 Urine Color Yellow (Yellow) 06/19/24 18:20 Urine Appearance Clear (CLEAR) 06/19/24 18:20 Urine pH 8 (5-7) H 06/19/24 18:20 Ur Specific [place] 1.005 (1.005-1.030) 06/19/24 18:20 Urine Protein Neg (Negative) 06/19/24 18:20 Urine Glucose (UA) Norm (Normal) 06/19/24 18:20 Urine Ketones Negative (Negative) 06/19/24 18:20 Urine Blood Neg (Negative) 06/19/24 18:20 Urine Nitrate Negative (Negative) 06/19/24 18:20 Urine Bilirubin Neg (Negative) 06/19/24 18:20 Urine Urobilinogen Norm mg/dL (Negative) 06/19/24 18:20 Ur Leukocyte Esterase Negative (Negative) 06/19/24 18:20 No radiology studies performed this visit Discharge Plan Discharge Patient Disposition: Home Clinical Impression: hypertension Condition: Stable Prescriptions: New hydralazine 10 mg tablet 10 mg PO TID Qty: 21 0RF No Action (DME) blood-glucose meter [Accu-Chek Guide Glucose Meter] Misc See Rx Instructions .ROUTE .MEDSUPPLY Qty: 1 0RF Rx Instructions: fasting and one hour after each meal (DME) Accu-Chek Guide test strips Strip See Rx Instructions .ROUTE .MEDSUPPLY Qty: 100 12RF Rx Instructions: fasting and one hour after each meal (DME) Comfort Touch Ult Thin Lancets 31 gauge misc See Rx Instructions .ROUTE .MEDSUPPLY Qty: 100 12RF Rx Instructions: fasting and one hour after each meal furosemide [Lasix] 20 mg tablet 20 mg PO DAILY Qty: 14 0RF Novolin 70-30 FlexPen U-100 100 unit/mL (70-30) insulin pen 10 unit SUBCUT QAM Qty: 15 0RF Rx Instructions: also 12 units subcut at 7 p.m. daily Vitamin 27 mg iron- 800 mcg Tablet 1 tab PO DAILY Discharge Orders: Discharge ED (Routine); Ordered 06/19/24 Ordered By: Donovan Oh Referrals: Gela Lagos MD [Primary Care Provider] - Discharge Diet: Usual diet Discharge Activity: Limit activity as instructed Patient Instructions: Opioid Safety, Pain Management Activity Restrictions/Additional Instructions: Thank you for choosing [facility] for your healthcare needs today. It is very important that you follow up as instructed or that you return to the Emergency Department should you have concerns or if your condition changes or worsens in any way. You are seen today in the emergency room for swelling elevated blood pressure after your . Your laboratory test did not show any signs of infection white count is normal you are mildly anemic which is not unusual after a delivery. No other clinically significant lab findings were noted. Liver functions and platelets kidney function are all normal electrolytes are also normal. Continue your Lasix 20 mg a day and start hydralazine 10 mg 3 times a day Coding Level of Care Code ED Car Usher for Jocelyne Middleton
[2024-06-19 17:19] VITALS: BP 164/93
[2024-06-19 17:21] LABS: Basophils # 0.1 10^3/uL (0.0-0.1); Basophils % 0.7 %; Eosinophils # 0.1 10^3/uL (0.0-0.8); Eosinophils % 1.5 %; Hematocrit 31.1 % (36-47); Lymphocytes # 1.6 10^3/uL (0.8-4.8); Lymphocytes % 21.6 %; Mean Corpuscular HGB Conc 31.8 g/dL (30-55); Mean Corpuscular Hemoglobin 28.1 pg (27-33); Mean Corpuscular Volume 88.4 fl (85-98); Mean Platelet Volume 8.2 fL (7.4-10.4); Monocytes # 0.3 10^3/uL (0.2-0.9); Monocytes % 4.7 %; Neutrophils # 5.17 10^3/uL (1.8-7.7); Neutrophils % 70.8 %; Nucleated Red Blood Cells % 0.3 %; Platelet Count 376 10^3/cmm (157-399); Red Blood Count 3.52 10^6/uL (3.85-5.65); Red Cell Distribution Width 14.2 % (12.1-15.1)
[2024-06-19 17:45] LABS: Alanine Aminotransferase 16 U/L (0-33); Albumin Level 3.4 g/dL (3.5-5.2); Alkaline Phosphatase 120 U/L (35-105); Anion Gap 17.7 (5-19); Aspartate Amino Transferase 25 U/L (0-32); Blood Urea Nitrogen 7 mg/dL (6-20); Calcium 8.6 mg/dL (8.5-10.5); Carbon Dioxide 25 mmol/L (22-29); Chloride 105 mmol/L (98-107); Creatinine Clr Calc Pharmacy 166.7349; Globulin 3.3 g/dL (1.3-4.6); Glomerular Filtration Rate 140.4 mL/min (90-130); Glucose 94 mg/dL (65-115); Osmolality Calculated 296 mOsm/kg (285-295); Potassium 3.7 mmol/L (3.5-5.1); Sodium 144 mmol/L (136-145); Total Bilirubin 0.9 mg/dL (0.15-1.2); Total Protein 6.7 g/dL (6.6-8.7)
[2024-06-19 18:28] LABS: Add Urine Microscopic? NO; Charge for UA Resulting for Rev
[2024-06-19 18:30] LABS: Bilirubin Urine Neg (Negative); Blood Urine Neg (Negative); Glucose Urine UA Norm (Normal); Ketones Urine Negative (Negative); Leukocyte Esterase Urine Negative (Negative); Nitrate Urine Negative (Negative); Protein Urine Neg (Negative); Specific Gravity, Urine 1.005 (1.005-1.030); Urine Appearance Clear (CLEAR); Urine Color Yellow (Yellow); Urobilinogen Urine Norm (Negative); pH Urine 8 (5-7)
[2024-06-19 18:36] VITALS: PULSE 72; O2SAT 96
[2024-06-19] MEDS: hyDRALAzine 10 mg Tablet PO (19:01)
[2024-06-19 19:04] VITALS: BP 146/101; PULSE 69; O2SAT 98
== END 2024-06-19 19:05 | disposition home or self-care (01) ==
PROVIDERS: Emergency Provider Family Medicine; PCP Family Medicine
DX: O16.5 Unspecified maternal hypertension, complicating the puerperium (principal); Z79.4 Long term (current) use of insulin
CPT/HCPCS: 80053; 81003; 85025; 87040; 99283

== ENCOUNTER → 2024-08-25 09:54 | Outpatient (BNVA) | payer MEDICAID, SELFPAY | PROVIDERS: PCP Family Medicine; Visit Provider Obstetrics & Gynecology | DX: O72.1 Other immediate postpartum hemorrhage (principal) | CPT/HCPCS: 85025 ==

== ENCOUNTER → 2025-02-10 13:08 | Outpatient (BNVA) | payer MEDICAID, SELFPAY | PROVIDERS: PCP Family Medicine; Visit Provider Specialist | DX: S83.207A Unspecified tear of unspecified meniscus, current injury, left knee, initial encounter (principal); X58.XXXA Exposure to other specified factors, initial encounter | CPT/HCPCS: 73560; 73565 ==

== ENCOUNTER 2025-03-05 12:55 | Outpatient (CLI) | payer MEDICAID, SELFPAY ==
--- NOTE | 2025-03-05 13:00 | MR_ITS ---
WS: [id number] MRI LEFT KNEE HISTORY: Chronic LEFT knee pain, lateral pain. COMPARISON: Radiographs 02/10/2025 Anterior cruciate ligament: Intact. Posterior cruciate ligament: Intact. Medial collateral ligament: Intact. Posterior lateral corner structures: Intact. Medial menisci: Intact. Normal signal, size and shape. Lateral meniscus: Intact. Normal signal, size and shape. Extensor mechanism: Thickening and increased T2 signal throughout majority of the patellar tendon consistent with tendinopathy. No central tear. Greatest area of thickening is distally. Distal quadriceps tendon is intact. Fluid and soft tissue: Small suprapatellar joint effusion. Small amount of fluid extends into the central knee. No Castañeda's cyst. Osseous and articular structures: Patellofemoral compartment: There is focal edema within the fat interposed between the lateral patellar and the lateral trochlear ridge. There does not appear to be lateral subluxation of the patella. There is narrowing of the lateral patellofemoral articulation which may increase with patient mobility. Small amount of prepatellar edema. Medial compartment: Normal. No marrow edema. Cartilage is preserved. Lateral compartment: Minimal superficial fraying along the tibial plateau cartilage. MR/MR knee LT wo con* [id number] IMPRESSION: 1. No ACL or meniscal tear. 2. Moderate diffuse patellar tendinopathy. 3. Lateral patellofemoral fat pad impingement with edema. Consider patellar te ndon/lateral femoral condyle friction syndrome. May be related to a tracking is oz of the patella. 4. Small amount of prepatellar soft tissue edema is also present. Edema extend s over the patellar tendon.
== END 2025-03-05 12:56 | disposition home or self-care (01) ==
PROVIDERS: PCP Family Medicine; Visit Provider Specialist
DX: M67.864 Other specified disorders of tendon, left knee (principal); M79.4 Hypertrophy of (infrapatellar) fat pad; R93.6 Abnormal findings on diagnostic imaging of limbs
CPT/HCPCS: 73721